=== PATIENT | female | born 1970 | race Caucasian/White ===

== ENCOUNTER 2023-06-07 09:28 | Outpatient (OUT) | payer MEDICAID, SELFPAY ==
--- NOTE | 2023-06-07 09:33 | CT_ITS ---
[address] [address] Patient Name: GIULIANO ALLEN MRN: [id number] date: 1970 Sex: F Assigned Patient Location: CT Current Patient Location: CT Accession/Order Number: [id number] Exam Date: 06/07/2023 09:40 Report Date: 06/07/2023 10:26 At the request of: ADRIANNE KELLOGG Procedure: CT lung screening low-dose EXAMINATION: CT lung screening low-dose HISTORY: Cigarette Smoker F17.210, Chronic Obstructive Pulmonary Dis COMPARISON: CTA chest 03/14/2018 TECHNIQUE: Axial, Coronal, and Sagittal images were created without the administration of IV contrast material. Dose reduction techniques were achieved by using automated exposure control and/or adjustment of mA and/or kV according to patient size and/or use of iterative reconstruction technique. FINDINGS: LUNGS: No visible pulmonary disease. PLEURA: No mass, effusion, or pneumothorax. VASCULATURE: No abnormality. EDDIE: No mass or pathologic adenopathy. MEDIASTINUM: No mass or pathologic adenopathy. CARDIAC: No enlargement, pericardial thickening, or pericardial effusion. AORTA: No aneurysm or dissection. CHEST WALL: No mass or axillary adenopathy BONES: No bone lesion or fracture. LIMITED ABDOMEN: Stable 2.2 cm right hepatic dome cyst versus hemangioma. Limited images of the upper abdomen. OTHER: Negative. CT/CT lung screening low-dose IMPRESSION: 1. Lung-RADS Category 1 Negative. No nodules and definitely benign nodules. Continue annual screening with LDCT in 12 months. Electronically authenticated by: MAHOGANY THURMAN Date: 06/07/2023 10:26
[2023-06-07 10:30] LABS: Basophils Absolute Auto 0.1 10^3/uL (0.0-0.1); Eosinophils Absolute Auto 0.3 10^3/uL (0.0-0.7); Eosinophils Percent Auto 3.4 % (0.9-7.0); Hematocrit 38.6 % (36.0-48.0); Hemoglobin 11.7 g/dL (12.0-16.0); Immature Granulocytes Abs Auto 0.03 10^3/uL (0.00-0.03); Immature Granulocytes Pct Auto 0.3 % (0.0-0.5); Lymphocytes Absolute Auto 2.1 10^3/uL (1.2-3.8); Lymphocytes Percent Auto 22.8 % (20.5-60.0); Mean Corpuscular HGB Conc 30.3 g/dL (29.9-35.2); Mean Corpuscular Hemoglobin 27.7 pg (26.7-34.0); Mean Corpuscular Volume 91.5 fL (81.0-99.0); Mean Platelet Volume 9.6 fL (9.5-13.5); Monocytes Absolute Auto 0.8 10^3/uL (0.3-0.8); Monocytes Percent Auto 9.2 % (1.7-12.0); Neutrophils Absolute Auto 5.7 10^3/uL (1.4-6.5); Neutrophils Percent Auto 63.3 % (43.0-75.0); Platelet Count 364 10^3/uL (150-450); Red Blood Count 4.22 10^6/uL (4.20-5.40); Red Cell Distribution Width 15.6 % (11.0-15.0)
[2023-06-07 11:55] LABS: Alanine Aminotransferase 30 U/L (14-59); Albumin Globulin Ratio 0.8; Alkaline Phosphatase 102 U/L (46-116); Anion Gap 12.9; Aspartate Amino Transferase 17 U/L (15-37); Bilirubin Total 0.2 mg/dL (0.2-1.0); Calcium 9.2 mg/dL (8.5-10.1); Carbon Dioxide 25.4 mmol/L (21.0-32.0); Chloride 107 mmol/L (98-107); Chol HDL Ratio 3.6; Cholesterol 156 mg/dL (<=200); Estimated GFR (African America >60 (>=60); Estimated GFR (Non-African Ame 53 (>=60); Glucose 119 mg/dL (74-106); HDL Cholesterol 43 mg/dL (40-60); Potassium 4.3 mmol/L (3.5-5.1); Sodium 141 mmol/L (136-145); TSH W/ REFLEX FT4 1.775 uIU/mL (0.358-3.740); Triglycerides 173 mg/dL (<=150); VLDL CHOLESTEROL 34.6 mg/dL
== END 2023-06-07 09:29 | disposition home or self-care (01) ==
LOC: CT 09:28
DX: R63.5 Abnormal weight gain (principal); F17.210 Nicotine dependence, cigarettes, uncomplicated; J44.9 Chronic obstructive pulmonary disease, unspecified; Z13.220 Encounter for screening for lipoid disorders; Z13.1 Encounter for screening for diabetes mellitus; G62.9 Polyneuropathy, unspecified; E55.9 Vitamin D deficiency, unspecified
CPT/HCPCS: 36415; 71271; 80053; 80061; 82306; 82607; 84443; 85025

== ENCOUNTER 2024-12-10 12:52 | Outpatient (OUT) | payer MEDICAID, SELFPAY ==
--- OUTSIDE RECORDS SUMMARY | 2024-12-10 13:04 | XMS_ITS | CCD ---
Author Organization [facility] Care Team Providers Care Buffing Line Set Up Worker Name Role Phone DO Heri Antonio Attending Provider Daniel, DANIEL William Primary Care Provider JOCELYNE, DR CROSS Primary Care Unavailable DANIEL, PAOLA Admitting Unavailable DANIEL, PAOLA Consulting Unavailable DANIEL, PAOLA Attending Unavailable NADEGE, DR LORNA Russell Attending Unavailable MISC, DR CROSS Primary Care Unavailable NADEGE, DR LORNA Russell Admitting Unavailable NADEGE, DR LORNA Russell Consulting Unavailable DANIEL, PAOLA Primary Care Unavailable SP, DR RULA Salazar Admitting Unavailable SP, DR RULA Salazar Consulting Unavailable SP, DR RULA Salazar Attending Unavailable WENDY ANTONIO Admitting Unavailable ZIEBPHILLY, DR MAHOGANY Russell Consulting Unavailable JOCELYNE, DR CROSS Primary Care Unavailable WENDY ANTONIO Attending Unavailable WENDY ANTONIO Consulting Unavailable WENDY ANTONIO Admitting Unavailable WENDY ANTONIO Consulting Unavailable WENDY ANTONIO Attending Unavailable JOCELYNE, DR CROSS Primary Care Unavailable Daniel, ARTIST COLOR SEPARATION Paola William Primary Care Provider MD Vlad Aguilar Attending Provider MD Prudencio Crain Attending Provider Prudencio Crain Attending Unavailab Prudencio Luther Admitting Unavailab le Daniel, Paola Stewart Primary Care Unavailable Daniel PRECISION INSTRUMENT AND TOOL MAKER-C, Paola A Attending Unavailable Daniel PRECISION INSTRUMENT AND TOOL MAKER-C, Paola A Primary Care Unavailable Daniel PRECISION INSTRUMENT AND TOOL MAKER-C, Paola A Attending Unavailable Daniel PRECISION INSTRUMENT AND TOOL MAKER-C, Paola A Primary Care Unavailable Daniel PRECISION INSTRUMENT AND TOOL MAKER-C, Paola A Primary Care Unavailable Daniel PRECISION INSTRUMENT AND TOOL MAKER-C, Paola A Attending Unavailable Daniel PRECISION INSTRUMENT AND TOOL MAKER-C, Paola A Primary Care Unavailable Daniel PRECISION INSTRUMENT AND TOOL MAKER-C, Paola A Attending Unavailable Daniel PRECISION INSTRUMENT AND TOOL MAKER-Paola Leo Primary Care Unavailable Daniel PRECISION INSTRUMENT AND TOOL MAKER-CPaola Attending Unavailable Allergies Allergy Classification Reported Allergen(s) Allergy Type Date of Onset Reaction(s) Facility (1 source) Amoxicillin Drug Allergy 6 [facility] Repository (2 sources) Penicillin; Translations: [penicillin] Drug Allergy 7 [facility] Repository (2 sources) Penicillins; Translations: [Penicillins] Allergy to substance 4 [facility] (1 source) Grass; Translations: [Grass] Propensity to adverse reactions to drug (disorder) [facility] Repository Medications Current Medications Medication Drug Class(es) Dates Sig (Normalized) Sig (Original) [id number] actuat albuterol 0.09 mg/actuat metered dose inhaler (1 source) beta2-Adrenergic Agonist Start: 09-04-2023 Albuterol Sulfate Active 1 - 2 INH INHALATION EVERY 4-6 HOURS September 04, 2023 12:00am ALPRAZolam 1 mg oral tablet (1 source) Benzodiazepine Start: 09-04-2023 take 1 mg by mouth twice daily Alprazolam Active 1 MG PO Twice daily September 04, 2023 12:00am busPIRone hydrochloride 15 mg oral tablet (1 source) Start: 09-04-2023 take 15 mg by mouth once daily at bedtime Buspirone Active 15 MG PO Daily at bedtime September 04, 2023 12:00am cholecalciferol 0.025 mg oral capsule (1 source) Vitamin D Start: 09-04-2023 take 25 ug by mouth once daily at bedtime Cholecalciferol (Vitamin D3) Active 25 MCG PO Daily at bedtime September 04, 2023 12:00am melatonin 3 mg oral tablet (1 source) Start: 09-04-2023 take 3-6 mg by mouth once daily at bedtime Melatonin Active 3 - 6 MG PO Daily at bedtime September 04, 2023 12:00am Mometasone-Formotero l (Dulera) 200-5 mcg/actuation HFA aerosol inhaler (1 source) Start: 09-04-2023 Mometasone-Formoter ol (Dulera) 200-5 mcg/actuation HFA aerosol inhaler Active 2 INH INHALATION Twice daily September 04, 2023 12:00am Tiotropium Parachute (Spiriva With Handihaler) 18 mcg capsule, w/inhalation device (1 source) Start: 09-04-2023 take 1 capsule by inhalation once daily at bedtime Tiotropium Parachute (Spiriva With Handihaler) 18 mcg capsule, w/inhalation device Active 1 CAP INHALATION Daily at bedtime September 04, 2023 12:00am vitamin b12 0.1 mg oral tablet (1 source) Vitamin B12 Start: 09-04-2023 take 100 ug by mouth once daily at bedtime Cyanocobalamin (Vitamin B-12) Active 100 MCG PO Daily at bedtime September 04, 2023 12:00am Problems Active Problems Problem Classification Problem Date Documented Date Episodic/Chronic Asthma (4 sources) Unspecified asthma, uncomplicated; Translations: [UNSPECIFIED ASTHMA UNCOMPLICATED] Onset: 03-30-2021 Chronic Chronic obstructive pulmonary disease and bronchiectasis (1 source) Chronic obstructive pulmonary disease, unspecified; Translations: [COPD UNSPECIFIED] Onset: 06-05-2021 Chronic Nutritional deficiencies (1 source) Vitamin D deficiency, unspecified; Translations: [VITAMIN D DEFICIENCY UNSPECIFIED] Onset: 04-06-2021 Chronic Other connective tissue disease (4 sources) Other symptoms and signs involving the musculoskeletal system; Translations: [OTH SX AND SYMP INVOLV MUSCULOSKELTAL] Onset: 01-09-2022 Episodic Other nervous system disorders (1 source) Polyneuropathy, unspecified; Translations: [POLYNEUROPATHY UNSPECIFIED] Onset: 04-06-2021 Chronic Spondylosis; intervertebral disc disorders; other back problems (1 source) Other intervertebral disc degeneration, lumbosacral region; Translations: [OTH IV DISC DEGEN LUMBOSACRAL RGN] Onset: 01-11-2022 Chronic Spondylosis; intervertebral disc disorders; other back problems (2 sources) Intervertebral disc disorders with radiculopathy, lumbar region; Translations: [Spinal stenosis, lumbar region without neurogenic claudication] Onset: 02-18-2022 Episodic Unclassified (3 sources) LOW BACK PAIN, UNSPECIFIED; Translations: [LOW BACK PAIN, UNSPECIFIED] Onset: 02-18-2022 Past or Other Problems Problem Classification Problem Date Documented Da te Episodic/Chronic Other aftercare (1 source) Other manager style (current) drug therapy; Translations: [OTH [facility] CURRENT DRUG THERAPY] Onset: 06-05-2021 Episodic Other screening for suspected conditions (not mental disorders or infectious disease) (2 sources) Encounter for screening for diabetes mellitus; Translations: [Encounter for screening for lipoid disorders] Onset: 04-06-2021 Episodic Other skin disorders (4 sources) Rash and other nonspecific skin eruption; Translations: [RASH OTH NONSPECIFIC SKIN ERUPTION] Onset: 06-03-2021 Episodic Skin and subcutaneous tissue infections (1 source) Local infection of the skin and subcutaneous tissue, unspecified; Translations: [LOCAL INFECT SKIN SUBQ TISSUE UNS] Onset: 06-05-2021 Episodic Unclassified (1 source) LOW BACK PAIN, UNSPECIFIED; Translations: [LOW BACK PAIN, UNSPECIFIED] Onset: 02-13-2022 Results Test Name Value Interpretation Reference Range Facil ity Patient Letteron 06-02-2024 Patient Letter [id number] [facility] Outside Recordson 06-01-2024 Outside Records Pt was a no show for her appointment and has not rescheduled [Electronically Signed on: 06/02/2024 08:19 EST] Carey De La Rosa [Verified on: 06/02/2024 08:19 EST] Carey De La Rosa [facility] HCG ( test) IA.rapi d Ql (U)Ordered By: Kashif Perez on 10-03-2023 HCG ( test) Ql (U) Negative [facility] HCG ( test) IA.rapi d Ql (U)Ordered By: Pelon Stalh on 09-05-2023 HCG ( test) Ql (U) Negative [facility] MRI LSPINE WO CONon 01-10-20 MRI LSPINE WO CON EXAMINATION: MRI LSPINE WO CON HISTORY: Musculoskeletal symptom ; bilateral leg weakness, chronic lumbar pain COMPARISON: No relevant comparison available. TECHNIQUE: A variety of imaging planes and parameters were utilized for visualization of suspected pathology. FINDINGS: For the purposes of numbering, sagittal T2 image # 8 extends from the T11 vertebral body superiorly to the S2-S3 level inferiorly. PARASPINAL AREA: Normal with no visible mass. BONES: No fracture, pars defect, or osseous lesion. CORD/CAUDA EQUINA: Normal caliber, contour, and signal intensity. DISC LEVELS: 12-L1: No significant disc/facet abnormality, spinal stenosis, or foraminal stenosis. L1-L2: No significant disc/facet abnormality, spinal stenosis, or foraminal stenosis. L2-L3: No significant disc/facet abnormality, spinal stenosis, or foraminal stenosis. L3-L4: Early degenerative disc disease is present without focal protrusion or neural impingement. L4-L5: Mild degenerative facet arthropathy bilaterally. No significant disc abnormality, spinal stenosis, or foraminal stenosis. L5-S1: Mild-moderate left, mild right foramen narrowing. No significant central canal narrowing. Mild diffuse disc bulging with small, broad-based left paracentral disc protrusion. Moderate disc height reduction. IMPRESSION: 1. No specific findings to account for patient's symptoms. 2. L5-S1 mild-moderate left and mild right foramen narrowing secondary to moderate degenerative disc disease. Electronically authenticated by: MAHOGANY THURMAN Date: 2022-01-09 17:20 Normal [facility] CBC AUTO DIFFon 03-31-2021 BASO # 0.1 103/ul Normal 0.0-0.1 [facility] Comment on above: Performed By: #### C BC #### [facility] [address] [address] [address] Kacy Mane Basophils/100 WBC (Bld) 0.6 % Normal 0.2-2.0 [facility] Comment on above: Performed By: #### C BC #### [facility] [address] [address] [address] Kacy Mane EO # 0.3 103/ul Normal 0.0-0.7 [facility] Comment on above: Performed By: #### C BC #### [facility] [address] [place] [address] Dr. Kacy Mane Eosinophils/100 WBC (Bld) 3.4 % Normal 0.9-7.0 [facility] Comment on above: Performed By: #### C BC #### [facility] [address] [place] [address] Dr. Kacy Mane Erythrocyte distribution width (RBC) [Ratio] 14.1 % Normal 11.0-15.0 [facility] Comment on above: Performed By: #### C BC #### [facility] [address] [place] [address] Dr. Kacy Mane Hematocrit (Bld) [Volume fraction] 39.1 % Normal 36.0-48.0 [facility] Comment on above: Performed By: #### C BC #### [facility] [address] [place] [address] Dr. Kacy Mane Hemoglobin (Bld) [Mass/Vol] 12.7 g/dL Normal 12.0-16.0 [facility] Comment on above: Performed By: #### C BC #### [facility] [address] [place] [address] Dr. Kacy Mane IG # 0.03 10e3/ul Normal 0.00-0.03 [facility] Comment on above: Performed By: #### C BC #### [facility] [address] [place] [address] Dr. Kacy Mane IG % 0.4 % Normal 0.0-0.5 [facility] Comment on above: Performed By: #### C BC #### [facility] [address] [place] [address] Dr. Kacy Mane LYMPH # 2.3 103/ul Normal 1.2-3.8 [facility] Comment on above: Performed By: #### C BC #### [facility] [address] [place] [address] Dr. Kacy Mane Lymphocytes/100 WBC (Bld) 27.3 % Normal 20.5-60.0 [facility] Comment on above: Performed By: #### C BC #### [facility] [address] [place] [address] Dr. Kacy Mane MANUAL DIFF REQ NO Normal [facility] Comment on above: Performed By: #### C BC #### [facility] [address] [place] [address] Dr. Kacy Mane MCH (RBC) [Entitic mass] 32.1 pg Normal 26.7-34.0 [facility] Comment on above: Performed By: #### C BC #### [facility] [address] [place] [address] Dr. Kacy Mane MCHC (RBC) [Mass/Vol] 32.5 g/dL Normal 29.9-35.2 [facility] Comment on above: Performed By: #### C BC #### [facility] [address] [place] [address] Dr. Kacy Mane MCV (RBC) [Entitic vol] 98.7 fL Normal 81.0-99.0 [facility] Comment on above: Performed By: #### C BC #### [facility] [address] [place] [address] Dr. Kacy Mane MONO # 0.7 103/ul Normal 0.3-0.8 [facility] Comment on above: Performed By: #### C BC #### [facility] [address] [place] [address] Dr. Kacy Mane Monocytes/100 WBC (Bld) 8.1 % Normal 1.7-12.0 [facility] Comment on above: Performed By: #### C BC #### [facility] [address] [place] [address] Dr. Kacy Mane NEUT # 5.0 103/ul Normal 1.4-6.5 [facility] Comment on above: Performed By: #### C BC #### [facility] [address] [place] [address] Dr. Kacy Mane Neutrophils/100 WBC (Bld) 60.2 % Normal 43.0-75.0 [facility] Comment on above: Performed By: #### C BC #### [facility] [address] [place] [address] Dr. Kacy Mane Platelet mean volume (Bld) [Entitic vol] 9.2 fL Critically low 9.5-13.5 [facility] Comment on above: Performed By: #### C BC #### [facility] [address] [address] [address] Kacy Mane PLT 276 103/ul Normal 150-450 [facility] Comment on above: Performed By: #### C BC #### [facility] [address] [address] [address] Kacy Mane RBC 3.96 106/ul Critically low 4.20-5.40 [facility] Comment on above: Performed By: #### C BC #### [facility] [address] [place] [address] Dr. Kacy Mane WBC 8.3 103/ul Normal 4.0-11.0 [facility] Comment on above: Performed By: #### C BC #### [facility] [address] [place] [address] Dr. Kacy Mane LIPID PROFILEon 03-30-2021 CHOL-HDL RATIO NORM SEE BELOW Normal [facility] Comment on above: Result Comment: 3.3 - 4.4 LOW RISK 4.4 - 7.1 AVERAGE RISK 7.1 - 11.0 MODERATE RISK >11.0 HIGH RISK Performed By: #### L IPID, TSH, CMP #### [facility] [address] [place] [address] Dr. Kacy Mane Cholesterol [Mass/Vol] 153 mg/dL Normal <=200 [facility] Comment on above: Performed By: #### L IPID, TSH, CMP #### [facility] [address] [place] [address] Dr. Kacy Mane Cholesterol in HDL [Mass/Vol] 41 mg/dL Normal [facility] Comment on above: Performed By: #### L IPID, TSH, CMP #### [facility] [address] [place] [address] Dr. Kacy Mane Cholesterol in LDL [Mass/Vol] 98.4 mg/dL Normal [facility] Comment on above: Performed By: #### L IPID, TSH, CMP #### [facility] [address] [address] [address] Kacy Mane Cholesterol.total/ Cholesterol in HDL [Mass ratio] 3.7 {ratio} Normal [facility] Comment on above: Performed By: #### L IPID, TSH, CMP #### [facility] [address] [address] [address] Kacy Mane HDL NORMAL > or = 60 mg/dl - LO W CARDIOVASCULAR RISK <40 mg/dl - HIGH CARDIOVASCULAR RISK Normal [facility] Comment on above: Performed By: #### L IPID, TSH, CMP #### [facility] [address] [address] [address] Kacy Mane LDL CALC NORMAL SEE BELOW Normal [facility] Comment on above: Result Comment: <100 mg/dl OPTIMAL 100 - 129 mg/dl NEAR OR ABOVE OPTIMAL 130 - 159 mg/dl BORDERLINE HIGH 160 - 189 mg/dl HIGH >190 mg/dl VERY HIGH Performed By: #### L IPID, TSH, CMP #### [facility] [address] [address] [address] Kacy Mane Triglyceride [Mass/Vol] 68 mg/dL Normal <=150 [facility] Comment on above: Performed By: #### L IPID, TSH, CMP #### [facility] [address] [address] [address] Kacy Mane VLDL CALC 13.6 mg/dL Normal [facility] Comment on above: Performed By: #### L IPID, TSH, CMP #### [facility] [address] [address] [address] Kacy Mane PROF 14(COMP METB)on 021 Albumin [Mass/Vol] 3.1 g/dL Critically low 3.5-5.0 [facility] Comment on above: Performed By: #### L IPID, TSH, CMP #### [facility] [address] [place] [address] Dr. Kacy Mane Albumin/Globulin [Mass ratio] 0.8 {ratio} Normal [facility] Comment on above: Performed By: #### L IPID, TSH, CMP #### [facility] [address] [address] [address] Kacy Mane ALP [Catalytic activity/Vol] 89 U/L Normal 38-126 [facility] Comment on above: Performed By: #### L IPID, TSH, CMP #### [facility] [address] [address] [address] Kacy Mane ALT [Catalytic activity/Vol] 26 U/L Normal 9-52 [facility] Comment on above: Performed By: #### L IPID, TSH, CMP #### [facility] [address] [place] [address] Dr. Kacy Mane Anion gap [Moles/Vol] 11.3 mmol/L Normal [facility] Comment on above: Performed By: #### L IPID, TSH, CMP #### [facility] [address] [place] [address] Dr. Kacy Mane AST [Catalytic activity/Vol] 16 U/L Normal 14-36 [facility] Comment on above: Performed By: #### L IPID, TSH, CMP #### [facility] [address] [place] [address] Dr. Kacy Mane Bilirubin [Mass/Vol] 0.3 mg/dL Normal 0.2-1.3 [facility] Comment on above: Performed By: #### L IPID, TSH, CMP #### [facility] [address] [place] [address] Dr. Kacy Mane Calcium [Mass/Vol] 8.7 mg/dL Normal 8.4-10.2 [facility] Comment on above: Performed By: #### L IPID, TSH, CMP #### [facility] [address] [place] [address] Dr. Kacy Mane Chloride [Moles/Vol] 103 mmol/L Normal 98-107 [facility] Comment on above: Performed By: #### L IPID, TSH, CMP #### [facility] [address] [place] [address] Dr. Kacy Mane CO2 [Moles/Vol] 27.0 mmol/L Normal 22.0-30.0 [facility] Comment on above: Performed By: #### L IPID, TSH, CMP #### [facility] [address] [address] [address] Kacy Mane Creatinine [Mass/Vol] 1.23 mg/dL Critically high 0.52-1.04 [facility] Comment on above: Performed By: #### L IPID, TSH, CMP #### [facility] [address] [address] [address] Kacy Mane EGFR-AF TURKS AND CAICOS ISLANDER 55 mL/min/1.73m2 Critically low >=60 [facility] Comment on above: Performed By: #### L IPID, TSH, CMP #### [facility] [address] [place] [address] Dr. Kacy Mane EGFR-NON AF TURKS AND CAICOS ISLANDER 46 mL/min/1.73m2 Critically low >=60 [facility] Comment on above: Performed By: #### L IPID, TSH, CMP #### [facility] [address] [place] [address] Dr. Kacy Mane Globulin (S) [Mass/Vol] 3.8 g/dL Normal [facility] Comment on above: Performed By: #### L IPID, TSH, CMP #### [facility] [address] [place] [address] Dr. Kacy Mane Glucose [Mass/Vol] 98 mg/dL Normal 74-106 [facility] Comment on above: Performed By: #### L IPID, TSH, CMP #### [facility] [address] [place] [address] Dr. Kacy Mane Potassium [Moles/Vol] 4.3 mmol/L Normal 3.4-5.0 [facility] Comment on above: Performed By: #### L IPID, TSH, CMP #### [facility] [address] [place] [address] Dr. Kacy Mane Protein [Mass/Vol] 6.9 g/dL Normal 6.1-8.2 [facility] Comment on above: Performed By: #### L IPID, TSH, CMP #### [facility] [address] [place] [address] Dr. Kacy Mane Sodium [Moles/Vol] 137 mmol/L Normal 137-145 [facility] Comment on above: Performed By: #### L IPID, TSH, CMP #### [facility] [address] [place] [address] Dr. Kacy Mane Urea nitrogen [Mass/Vol] 19.0 mg/dL Critically high 7.0-17.0 [facility] Comment on above: Performed By: #### L IPID, TSH, CMP #### [facility] [address] [place] [address] Dr. Kacy Mane Urea nitrogen/Creatinin e [Mass ratio] 15.4 mg/mg Normal [facility] Comment on above: Performed By: #### L IPID, TSH, CMP #### [facility] [address] [place] [address] Dr. Kacy Mane TSHon 03-30-2021 TSH 1.221 uIU/mL Normal 0.470-4.680 [facility] Comment on above: Performed By: #### L IPID, TSH, CMP #### [facility] [address] [place] [address] Dr. Kacy Mane TSH RANGE SEE BELOW Normal [facility] Comment on above: Result Comment: <0.3 4 UIU/ml HYPERTHYROID 0.34-5.60 UIU/ml EUTHYROID >5.60 UIU/ml HYPOTHYROID Performed By: #### L IPID, TSH, CMP #### [facility] [address] [place] [address] Dr. Kacy Mane VITAMIN B12on 03-30-2021 Cobalamin (Vitamin B12) [Mass/Vol] 715.0 pg/mL Normal 239.0-931.0 [facility] Comment on above: Performed By: #### V ITB12, VITAD #### [facility] [address] [place] [address] Dr. Kacy Mane VITAMIN D 25 OHon 03-30-2021 VIT D 25-OH 57.1 ng/mL Normal [facility] Comment on above: Performed By: #### V ITB12, VITAD #### [facility] [address] [place], [place] [address] Dr. Kacy Mane VIT D RANGES SEE BELOW Normal [facility] Comment on above: Result Comment: <20 ng/mL Vit D deficient 20 - <30 ng/mL Vit D insufficient 30 - 100 ng/mL Vit D sufficient >100 ng/mL Potential Toxicity Performed By: #### V ITB12, VITAD #### [facility] [address] [address] [address] Kacy Mane Vital Signs Date Time Vital Sign Value Performing Clinician Faci lity 10-03-2023 10:55-0400 Diastolic blood pressure 69 mm[Hg] ARTIST [employer] SEPARATION Paola Daniel Work Phone: [facility] 10-03-2023 10:55-0400 Heart rate 72 /min [employer]PAR[employer] Paola Daniel Work Phone: [facility] 10-03-2023 10:55-0400 Respiratory rate 16 /min [employer]PAR[employer] Paola Daniel Work Phone: [facility] 10-03-2023 10:55-0400 SaO2% (BldA) [Mass fraction] 93 % [employer]PARATION Paola Daniel Work Phone: [facility] 10-03-2023 10:55-0400 Systolic blood pressure 109 mm[Hg] [employer] SEPARATION Paola Daniel Work Phone: [facility] 10-03-2023 09:17-0400 Body height 162.56 cm [employer]PARATION Paola Daniel Work Phone: [facility] 10-03-2023 09:17-0400 Body temperature 98 [degF] [employer] SEPARATION Paola Daniel Work Phone: [facility] 10-03-2023 09:17-0400 Body weight 100.69 kg [employer]PAR[employer] Paola Daniel Work Phone: [facility] 09-05-2023 11:08-0400 Diastolic blood pressure 80 mm[Hg] [employer] SEPARATION Paola Daniel Work Phone: [facility] 09-05-2023 11:08-0400 Heart rate 79 /min [employer]PAR[employer] Paola Daniel Work Phone: [facility] 09-05-2023 11:08-0400 Respiratory rate 16 /min [employer]PAR[employer] Paola Daniel Work Phone: [facility] [facility] 09-05-2023 11:08-0400 SaO2% (BldA) [Mass fraction] 97 % [employer]PAR[employer] Paola Daniel Work Phone: [facility] 09-05-2023 11:08-0400 Systolic blood pressure 121 mm[Hg] [employer]PAR[employer] Paola Daniel Work Phone: [facility] 09-05-2023 09:23-0400 Body height 162.56 cm [employer] SEPAR[employer] Paola Daniel Work Phone: [facility] 09-05-2023 09:23-0400 Body temperature 98.1 [degF] [employer]PAR[employer] Paola Daniel Work Phone: [facility] 09-05-2023 09:23-0400 Body weight 90.71 kg [employer]IST [employer] SEPARATION Paola Daniel Work Phone: [facility] Encounters Encounter Date Encounter Type Care Provider Facility Start: 12-08-2024 ambulatory Paola A Daniel [employer]-C Facil ity:[facility] Start: 11-16-2024 ambulatory Prudencio Montero acility:[facility] Start: 06-10-2024 ambulatory Paola A Daniel [employer]-C Facil ity:[facility] Start: 06-01-2024 ambulatory Paola A Daniel [employer]C Facil ity:[facility] Start: 05-28-2024 ambulatory Paola A Daniel [employer]-C Facil ity:[facility] Start: 05-21-2024 ambulatory Paola A Daniel [employer]-C Facil ity:[facility] Start: 10-03-2023 End: 10-03-2023 Admission to same day surgery center [employer] SEPARATION Paola Daniel Work Phone: [facility] [address] Start: 10-03-2023 End: 10-03-2023 ambulatory DANIEL Paola William Daniel Work Phone: [facility] Work Phone: Start: 09-11-2023 Registered Recurring DANIEL Posadaert Work Phone: [facility] Start: 09-05-2023 End: 09-05-2023 Admission to same day surgery center DANIEL Guevara Daniel Work Phone: [facility] [address] Start: 09-04-2023 End: 09-04-2023 Departed Referred DANIEL Posadaert Work Phone: [facility] Work Phone: Start: 02-13-2022 End: 02-14-2022 ambulatory PAOLA SANCHEZ Facility:[facility] Start: 01-09-2022 End: 01-10-2022 ambulatory WENDY ANTONIO Facility:[facility] Start: 07-25-2021 End: 07-25-2021 Patient encounter procedure DO Heri Antonio Work Phone: [facility] [address] Start: 07-03-2021 End: 07-04-2021 ambulatory WENDY ANTONIO Facility:[facility] Start: 06-03-2021 End: 06-03-[address] LORNA LIGHT Facility:[facility] Start: 03-30-2021 End: 03-31-[address] DOCTOR CASANOVA Facility:[facility] Procedures Date Procedure Procedure Detail Performing Clinician Start: 10-03-2023 Phacoemulsification of cataract with intraocular lens implantation DANIEL Guevara Daniel Work Phone: Start: 09-05-2023 Phacoemulsification of cataract with intraocular lens implantation [employer] Paola Daniel Work Phone: Plan of Treatment Date Care Activity Detail Author Start: 10-03-2023 [facility] Start: 09-05-2023 [facility] Start: 09-05-2023 [facility] Patient Education Know your Meds [facility] Work Phone: Patient referral [facility] Work Phone: Payers Date Payer Category Payer Self-pay [id number] 2022 Medicaid [id number] 1970 Unknown [id number] 2.16.84 [id number] 1968 Unknown [id number] 2.16.84 [id number] 1968 Unknown [id number] 2.16.84 [id number] 1968 Unknown [id number] 2.16.84 [id number] 1968 Unknown [id number] 2.16.84 [id number] 1968 Unknown [id number] 2.16.8 [id number] 1968 Unknown [id number] 2.16.8 [id number] 1968 Unknown [id number] 2.16.8 [id number] 1968 Unknown [id number] 2.16.8 [id number] 1968 Unknown [id number] 2.16.8 [id number] 1959 Unknown [id number] 1959 Unknown [id number] Unknown [id number] Unknown [id number] 2.16.8 [id number] Social History Date Type Detail Facility Tobacco smoking stat [facility] Unknown if ever smoked [facility] Work Phone: Start: 1970 Sex Assigned At Female F [facility] Start: 10-03-2023 Tobacco smoking stat [facility] Smoker (finding) [facility] Medical Equipment Procedure Code Equipment Code Equipment Origin al Text Equipment Identifier Dates Phacoemulsification of cataract with intraocular lens implantation Posterior-chamber intraocular lens, pseudophakic ()[id number] FDA Start: 09-05-2023 Goals Date Patient Goal Desired Activity /State Consultation note 02-13-2022 Note Date & Type Note Facility 02-13-2022 Note CONSULTATION CONSULTATION DATE: 02/13/2022 CHIEF COMPLAINT: Low back pain 15+ years. HISTORY OF PRESENT ILLNESS: This is a very pleasant, 52-year-old female who was referred to us by Dr. Antonio. The patient's family physician is Paola Sanchez CNP. The patient has chronic low back pain. The patient works at [employer]. The patient rates the pain as a 5/10, a throbbing sensation. Twisting, walking, housework, lifting, bending, climbing stairs, activities aggravate the pain as does cold weather. Sitting down, laying down mitigates the patient's pain symptomatology as does heat. The patient takes Advil three tablets on a p.r.n. basis, Alprazolam 1 mg b.i.d., wellbutrin 150 mg q.a.m. and 300 mg q.p.m., BuSpar 150 mg b.i.d. along with Vitamin D and melatonin. The patient is under the care of Paola Sanchez CNP. The patient's PAST MEDICAL HISTORY / SURGICAL HISTORY / REVIEW OF SYSTEMS are noted on the chart along with the MEDICATION LIST / ALLERGIES and MRI of the lumbar spine which was reviewed with the patient, which shows a herniated disc at the level of L5-S1 with encroachment along the S1 nerve root. PHYSICAL EXAMINATION: Upon physical examination, this is a pleasant, slightly disheveled, 52-year-old female, who ambulates with a walker. VITAL SIGNS: 111/77 with a heart rate of 78. At a height of 5'4 , the patient weighs 105 kg with a 96% saturation. HEAD: Atraumatic. The patient is edentulous. NECK: No guarding is noted. HEART: No orthopnea. Coloration is appropriate. LUNGS: Non-labored breathing. ABDOMEN: Protuberant, non-distended. BACK: With regards to the back, paravertebral spasming is noted. Extension, compression, direct palpation along the posterior elements aggravate the patient's pain concordant with facet arthropathy, lumbar spondylosis. EXTREMITIES: No pedal edema. NEUROLOGICALLY: Patellar reflexes are blunted; however, present. Achilles reflexes are absent bilaterally. Hypoesthesia is present along the L5-S1 distribution on the left hand side greater than right hand side. PSYCHIATRICALLY: Affect is appropriate. IMPRESSION: Current working diagnosis on the patient is low back pain, lumbar degenerative disc with bulging disc with spinal canal stenosis, L5-S1 radiculitis, lumbar spasm, lumbar spondylosis. PLAN: The patient is on a relatively high dose of benzodiazepines and, as such, feel uncomfortable prescribing any medications for her at this time. We have strongly suggested to the patient for her to decrease the Alprazolam to 0.5 mg initially on a b.i.d. basis, with the goal to be able to reduce this further. I believe that the patient is a good candidate for our conservative approach to improve her quality of life. I believe once we have attended to the radicular pain, we will work with the posterior element pain and then have the patient join an aquatic program. CC: Hugo Wylie, SHANTA [facility] Evaluation note Note Date & Type Note Facility Evaluation note [facility]: Hospital Discharge instructions Note Date & Type Note Facility Hospital Discharge instructions Additional Instructions POST CATARACT SURGERY INSTRUCTIONS EYEDROPS First day (24 hours) Ocuflox or Vigamox and Pred Forte-use 1 drop to operative eye every hour while awake. Artificial tears- May use 1 drop 4 times a day as needed in the surgical eye. Next day Ocuflox or Vigamox-continue to use the drop in the surgery eye 4 times per day for 1 week. Pred Forte-start using the drop in the surgery eye 4 times per day for 1 week, then taper to 3 times per day for 1 week, 2 times a day for 1 week, then once a day for 1 week. Artificial tears- May use 1 drop 4 times a day as needed in the surgical eye. -Wait 5 minutes or more between using the different medications. -Please bring all your eyedrops to every follow-up visit. BATHING: You may shower, bathe, or wash her hair normally after the surgery. SUNGLASSES: Please bring sunglasses for your ride home. Some people are light-sensitive for a few weeks following surgery. Wear sunglasses for comfort. Sunglasses are not required. DUE TO ANESTHESIA: DO NOT make complex decision/sign legal documents for 24 hours after your procedure. No smoking or drinking alcohol for 24 hours. EYE RUBBING: DO NOT RUB YOUR EYE for at least 4 weeks. BLUR: Blurriness is common for several days to weeks. IRRITATION: Mild irritation or watering eye is common. MEDICATION: Continue/resume normal medications, including eye drops. Patient educated on importance of managing medication information: -Give list of medications to primary care physician. -Update information when medications are discontinued, doses are changed or new medications added. -Carry medication list with you at all times in case of emergency. Call if questions/problems occur: If you experience 1. Persistent pain/vomiting 2. Sudden worsening of your eyesight. Please call your purchasing department clerk during normal business hours. If after business hours call Dr. Vlad Aguilar at his cell [phone] or his office [phone]. [facility] Work Phone: Chief Complaint and Reason for Visit Chief Complaint r29.257 Chief Complaint Right Eye Cataract Right Eye Cataract BH Left Eye Cataract Advance Directives No Advanced Directives Records Found Advance Directive Response Recorded Date/ Time Advance Directives No July 13, 2 022 4:21pm Summary Purpose Family History No Family History Records Found Relationship Condition Age at Onset Recorded Date/T anu Not Specified Multiple myeloma Unknown Malignant neoplasm of breast Unknown Depression Unknown Anxiety Unknown sister Malignant neoplasm of uterus Unknown Additional Source Comments Care Teams (unrecognized sec tion and content) Team Status: Inactive Member Role Status Dates Heri Antonio DO Attending Provider Active Paola Sanchez , ARTIST [employer]OR SEPARATION [employer]ER-C Primary Care Provider Active Team Status: Active Member Role Status Dates Paola Sanchez [employer] SEPARATION [employer]ER-C Primary Care Provider Active Team Status: Inactive Member Role Status Dates Paola Sanchez [employer] SEPARATION [employer]ER-C Primary Care Provider Active Start: September 04, 2023 End: September 04, 2023 Vlad Aguilar MD Attending Provider Active Start: September 04, 2023 End: September 04, 2023 Team Status: Inactive Member Role Status Dates Paola Sanchez [employer]IST [employer] SEPARATION [employer]OL [employer]KER-C Primary Care Provider Active Start: September 05, 2023 End: September 05, 2023 Vlad Aguilar MD Attending Provider Active Start: September 05, 2023 End: September 05, 2023 Team Status: Active Member Role Status Dates Paola Sanchez ARTIST [employer]OR SEPARATION [employer]OL [employer]KER-C Primary Care Provider Active Start: September 11, 2023 Prudencio Crain MD Attending Provider Active Start: September 11, 2023 Team Status: Inactive Member Role Status Dates Paola Sanchez , ARTIST COLOR SEPARATION [employer]UMENT [employer]OL MAKER-C Primary Care Provider Active Start: October 03, 2023 End: October 03, 2023 Vlad Aguilar MD Attending Provider Active Start: October 03, 2023 End: October 03, 2023 Goals (unrecognized section and content) Goals may be documented in a n alternate section INFORMATION SOURCE (unrecogn ized section and content) DATE CREATED AUTHOR 02/18/2022 [facility] DATE CREATED AUTHOR AUTHOR'S ORGANIZ ATION 12/05/2024 [facility] DATE CREATED AUTHOR AUTHOR'S ORGANIZ ATION 12/06/2024 [facility] FOR RECORDS PERTAINING TO PATIENTS WHO ARE OR HAVE BEEN ENROLLED IN A CHEMICAL DEPENDENCY/SUBSTANCEABUSE PROGRAM, SOME INFORMATION MAY BE OMITTED. This clinical summary was aggregated from multiple sources. Caution should be exercised in using it in the provision of clinical care. This summary normalizes information from multiple sources, and as a consequence, information in this document may materially change the coding, format and clinical context of patient data. In addition, data may be omitted in some cases. CLINICAL DECISIONS SHOULD BE BASED ON THE PRIMARY CLINICAL RECORDS. [facility]. provides no warranty or guarantee of the accuracy or completeness of information in this document.
[2024-12-10 13:40] LABS: Hematocrit 31.3 % (36.0-48.0); Hemoglobin 9.9 g/dL (12.0-16.0); Immature Granulocytes Abs Auto 0.03 10^3/uL (0.00-0.03); Immature Granulocytes Pct Auto 0.4 % (0.0-0.5); Lymphocytes Absolute Auto 2.0 10^3/uL (1.2-3.8); Mean Corpuscular HGB Conc 31.6 g/dL (29.9-35.2); Mean Corpuscular Hemoglobin 29.0 pg (26.7-34.0); Mean Corpuscular Volume 91.8 fL (81.0-99.0); Platelet Count 324 10^3/uL (150-450); Red Blood Count 3.41 10^6/uL (4.20-5.40); White Blood Count 8.4 10^3/uL (4.0-11.0)
[2024-12-10 14:34] LABS: Alanine Aminotransferase 28 U/L (14-59); Albumin Globulin Ratio 0.8; Albumin Level 3.2 g/dL (3.4-5.0); Alkaline Phosphatase 118 U/L (46-116); Anion Gap 11.5; Aspartate Amino Transferase 16 U/L (15-37); Blood Urea Nitrogen 14.0 mg/dL (7.0-18.0); Calcium 8.4 mg/dL (8.5-10.1); Carbon Dioxide 25.8 mmol/L (21.0-32.0); Chloride 103 mmol/L (98-107); Cholesterol 173 mg/dL (<=200); Estimated GFR (African America 56 (>=60 mL/min/1.73m^2); Estimated GFR (Non-African Ame 46 (>=60 mL/min/1.73m^2); Globulin 3.8 g/dL; Glucose 96 mg/dL (74-106); HDL Cholesterol 57 mg/dL (40-60); Potassium 4.3 mmol/L (3.5-5.1); Sodium 136 mmol/L (136-145); Total Protein 7.0 g/dL (6.4-8.2); Triglycerides 84 mg/dL (<=150); VLDL CHOLESTEROL 16.8 mg/dL
== END 2024-12-10 12:53 | disposition home or self-care (01) ==
DX: E74.39 Other disorders of intestinal carbohydrate absorption (principal); Z13.220 Encounter for screening for lipoid disorders; D64.9 Anemia, unspecified
CPT/HCPCS: 36415; 80053; 80061; 83036; 85025

== ENCOUNTER 2024-12-15 13:44 | Outpatient (OUT) | payer MEDICAID, SELFPAY ==
--- NOTE | 2024-12-15 13:57 | US_ITS ---
The [address] [address] Patient Name: GIULIANO ALLEN MRN: [id number] date: 1970 Sex: F Assigned Patient Location: [place] Current Patient Location: Accession/Order Number: [id number] Exam Date: 12/15/2024 14:00 Report Date: 12/15/2024 14:55 At the request of: ADRIANNE KELLOGG Procedure: US pelvis w/ transvaginal Pelvic ultrasound. Reason for exam: Dysmenorrhea Comparison: none Technique: Transvaginal and transabdominal imaging of the uterus and ovaries was also obtained. Additional spectral Doppler analysis of the ovaries was also obtained. Findings: Uterus measures 10.9 x 6.1 x 6.7 cm. Abnormal thickening involving the endometrium measuring 22 mm. No measurable fibroid. Right ovary measures 3.9 x 3.4 x 2.8 cm. 2.9 cm right ovarian cyst. Left ovary is not visualized. US/US pelvis w/ transvaginal Impression: Abnormal thickening involving the endometrium measuring 22 mm. Endometrial sampling should be considered. Impression dictated by: Lloyd Flores Jr., D.O. 12/15/2024 2:55 PM Dictation Location: [place] [address] Electronically authenticated by: [id number] Y Date: 12/15/2024 14:55
--- NOTE | 2024-12-15 13:58 | CT_ITS ---
The [address] [address] Patient Name: GIULIANO ALLEN MRN: [id number] date: 1970 Sex: F Assigned Patient Location: [place] Current Patient Location: [place] Accession/Order Number: [id number] Exam Date: 12/15/2024 14:35 Report Date: 12/15/2024 15:11 At the request of: ADRIANNE KELLOGG Procedure: CT lung screening low-dose CT CHEST WITHOUT CONTRAST, LOW DOSE SCREENING: CLINICAL DATA: A 54-year old current smoker, smoking for 30 pack-years. COMPARISON: None TECHNIQUE: Noncontrast axial CT scan images of the chest were obtained under the low dose screening CT protocol. Coronal and sagittal reconstructed images were also submitted. FINDINGS: Mediastinum : Suboptimal evaluation due to low-dose technique. Thoracic aorta appears normal in caliber. Pulmonary trunk appears nondilated. No pericardial effusion. No lymphadenopathy. The esophagus is grossly unremarkable. Lungs: No focal consolidation, pneumothorax or pleural effusion. Trachea and distal airways appear patent. Diffuse bronchial wall thickening. Emphysema. Mild lung scarring. No suspicious noncalcified pulmonary nodule or mass. Upper abdomen: No acute findings. Liver cyst. Bony thorax and chest wall: Soft tissues surrounding the chest wall demonstrate no acute findings. Osseous structures demonstrate degenerative change. CT/CT lung screening low-dose IMPRESSION: NO SUSPICIOUS PULMONARY NODULE OR MASS. LUNG - RADS Version 1.0 Assessment: Category 1, Negative (No nodules and definitely benign nodules). Management: Continue annual lung screening with LDCT in 12 months. Impression dictated by: Lloyd Flores Jr., D.O. 12/15/2024 3:11 PM Dictation Location: [employer] Electronically authenticated by: [id number] Y Date: 12/15/2024 15:11
--- OUTSIDE RECORDS SUMMARY | 2024-12-15 14:13 | XMS_ITS | CCD ---
Author Organization [facility] CliniSyky Care Team Providers Care Minister Assistant Name Role Phone DO Heri Antonio Attending [...] JOCELYNE, DR CROSS Primary Care Unavailable Daniel, SUPERVISOR [employer] Paola William Primary Care Provider MD Vlad Aguilar Attending Provider MD Prudencio Crain Attending Provider Prudencio Crain Attending Unavailab Prudencio Luther Admitting Unavailab le Daniel, Paola Stewart Primary Care Unavailable Daniel DEBUBBLIZER-C, Paola A Attending Unavailable Daniel DEBUBBLIZER-C, Paola A Primary Care Unavailable Daniel DEBUBBLIZER-C, Paola A Attending Unavailable Daniel DEBUBBLIZER-C, Paola A Primary Care Unavailable Daniel DEBUBBLIZER-C, Paola A Primary Care Unavailable Daniel DEBUBBLIZER-C, Paola A Attending Unavailable Daniel DEBUBBLIZER-C, Paola A Primary Care Unavailable Daniel DEBUBBLIZER-C, Paola A Attending Unavailable Daniel DEBUBBLIZER-Paola Leo Primary Care Unavailable Daniel DEBUBBLIZER-CPaola Attending Unavailable Allergies Allergy Classification Reported Allergen(s) Allergy Type Date of Onset Reaction(s) Facility (1 source) Amoxicillin Drug Allergy 6 [facility] Repository (2 sources) Penicillin; Translations: [penicillin] Drug Allergy 7 [facility] Repository (2 sources) Penicillins; Translations: [Penicillins] Allergy to substance 4 [facility] (1 source) Grass; Translations: [Grass] Propensity to adverse reactions to drug (disorder) [facility] Repository Medications Current Medications Medication Drug Class(es) Dates Sig (Normalized) Sig (Original) [id number] actuat albuterol 0.09 mg/actuat metered dose [...] Twice daily September 04, 2023 12:00am Tiotropium [place] (Spiriva With Handihaler) 18 mcg capsule, w/inhalation device (1 source) Start: 09-04-2023 take 1 capsule by inhalation once daily at bedtime Tiotropium [place] (Spiriva With Handihaler) 18 mcg capsule, w/inhalation [...] te Episodic/Chronic Other aftercare (1 source) Other extermination supervisor (current) drug therapy; Translations: [OTH RESIDENTIAL CURRENT DRUG THERAPY] Onset: 06-05-2021 Episodic Other [...] Facil ity Patient Letteron 06-02-2024 Patient Letter [id number] [facility] Outside Recordson 06-01-2024 Outside Records Pt was a no show for her appointment and has not rescheduled [Electronically Signed on: 06/02/2024 08:19 EST] Carey De La Rosa [Verified on: 06/02/2024 08:19 EST] Carey De La Rosa [facility] HCG ( test) IA.rapi d Ql (U)Ordered By: Kashif Perez on 10-03-2023 HCG ( test) Ql (U) Negative [facility] HCG ( test) IA.rapi d Ql (U)Ordered By: Pelon Stahl on 09-05-2023 HCG ( test) Ql (U) Negative [facility] MRI LSPINE WO CONon 01-10-20 MRI [...] MAHOGANY THURMAN Date: 2022-01-09 17:20 Normal [facility] CBC AUTO DIFFon 03-31-2021 BASO # 0.1 103/ul Normal 0.0-0.1 [facility] Comment on above: Performed By: #### C BC #### [facility] Laboratory [address] [address] [address] Kacy Mane Basophils/100 WBC (Bld) 0.6 % Normal 0.2-2.0 [facility] Comment on above: Performed By: #### C BC #### [facility] [address] [address] [address] Kacy Mane EO # 0.3 103/ul Normal 0.0-0.7 [facility] Comment on above: Performed By: #### C BC #### [facility] Laboratory [address] [place] [address] Dr. Kacy Mane Eosinophils/100 WBC (Bld) 3.4 % Normal 0.9-7.0 [facility] Comment on above: Performed By: #### C BC #### [facility] [address] [place] [address] Dr. Kacy Mane Erythrocyte distribution width (RBC) [Ratio] 14.1 % Normal 11.0-15.0 [facility] Comment on above: Performed By: #### C BC #### [facility] [address] [place] [address] Dr. Kacy Mane Hematocrit (Bld) [Volume fraction] 39.1 % Normal 36.0-48.0 [facility] Comment on above: Performed By: #### C BC #### [facility] [address] [place] [address] Dr. Kacy Mane Hemoglobin (Bld) [Mass/Vol] 12.7 g/dL Normal 12.0-16.0 [facility] Comment on above: Performed By: #### C BC #### [facility] [address] [place] [address] Dr. Kacy Mane IG # 0.03 10e3/ul Normal 0.00-0.03 [facility] Comment on above: Performed By: #### C BC #### [facility] [address] [place] [address] Dr. Kacy Mane IG % 0.4 % Normal 0.0-0.5 [facility] Comment on above: Performed By: #### C BC #### [facility] [address] [place] [address] Dr. Kacy Mane LYMPH # 2.3 103/ul Normal 1.2-3.8 [facility] Comment on above: Performed By: #### C BC #### [facility] [address] [place] [address] Dr. Kacy Mane Lymphocytes/100 WBC (Bld) 27.3 % Normal 20.5-60.0 [facility] Comment on above: Performed By: #### C BC #### [facility] [address] [place] [address] Dr. Kacy Mane MANUAL DIFF REQ NO Normal [facility] Comment on above: Performed By: #### C BC #### [facility] [address] [place] [address] Dr. Kacy Mane MCH (RBC) [Entitic mass] 32.1 pg Normal 26.7-34.0 [facility] Comment on above: Performed By: #### C BC #### [facility] [address] [place] [address] Dr. Kacy Mane MCHC (RBC) [Mass/Vol] 32.5 g/dL Normal 29.9-35.2 [facility] Comment on above: Performed By: #### C BC #### [facility] [address] [place] [address] Dr. Kacy Mane MCV (RBC) [Entitic vol] 98.7 fL Normal 81.0-99.0 [facility] Comment on above: Performed By: #### C BC #### [facility] [address] [place] [address] Dr. Kacy Mane MONO # 0.7 103/ul Normal 0.3-0.8 [facility] Comment on above: Performed By: #### C BC #### [facility] [address] [place] [address] Dr. Kacy Mane Monocytes/100 WBC (Bld) 8.1 % Normal 1.7-12.0 [facility] Comment on above: Performed By: #### C BC #### [facility] [address] [place] [address] Dr. Kacy Mane NEUT # 5.0 103/ul Normal 1.4-6.5 [facility] Comment on above: Performed By: #### C BC #### [facility] [address] [place] [address] Dr. Kacy Mane Neutrophils/100 WBC (Bld) 60.2 % Normal 43.0-75.0 [facility] Comment on above: Performed By: #### C BC #### [facility] [address] [place] [address] Dr. Kacy Mane Platelet mean volume (Bld) [Entitic vol] 9.2 fL Critically low 9.5-13.5 [facility] Comment on above: Performed By: #### C BC #### [facility] [address] [address] [address] Kacy Mane PLT 276 103/ul Normal 150-450 [facility] Comment on above: Performed By: #### C BC #### [facility] [address] [address] [address] Kacy Mane RBC 3.96 106/ul Critically low 4.20-5.40 [facility] Comment on above: Performed By: #### C BC #### [facility] [address] [place] [address] Dr. Kacy Mane WBC 8.3 103/ul Normal 4.0-11.0 [facility] Comment on above: Performed By: #### C BC #### [facility] [address] [place] [address] Dr. Kacy Mane LIPID PROFILEon 03-30-2021 CHOL-HDL RATIO NORM SEE BELOW Normal [facility] Comment on above: Result Comment: 3.3 - 4.4 LOW RISK 4.4 - 7.1 AVERAGE RISK 7.1 - 11.0 MODERATE RISK >11.0 HIGH RISK Performed By: #### L IPID, TSH, CMP #### [facility] [address] [place] [address] Dr. Kacy Mane Cholesterol [Mass/Vol] 153 mg/dL Normal <=200 [facility] Comment on above: Performed By: #### L IPID, TSH, CMP #### [facility] [address] [place] [address] Dr. Kacy Mane Cholesterol in HDL [Mass/Vol] 41 mg/dL Normal [facility] Comment on above: Performed By: #### L IPID, TSH, CMP #### [facility] [address] [place] [address] Dr. Kacy Mane Cholesterol in LDL [Mass/Vol] 98.4 mg/dL Normal [facility] Comment on above: Performed By: #### L IPID, TSH, CMP #### [facility] [address] [address] [address] Kacy Mane Cholesterol.total/ Cholesterol in HDL [Mass ratio] 3.7 {ratio} Normal [facility] Comment on above: Performed By: #### L IPID, TSH, CMP #### [facility] [address] [address] [address] Kacy Mane HDL NORMAL > or = 60 mg/dl - LO W CARDIOVASCULAR RISK <40 mg/dl - HIGH CARDIOVASCULAR RISK Normal [facility] Comment on above: Performed By: #### L IPID, TSH, CMP #### [facility] [address] [address] [address] Kacy Mane LDL CALC NORMAL SEE BELOW Normal [facility] Comment on above: Result Comment: <100 mg/dl OPTIMAL 100 - 129 mg/dl NEAR OR ABOVE OPTIMAL 130 - 159 mg/dl BORDERLINE HIGH 160 - 189 mg/dl HIGH >190 mg/dl VERY HIGH Performed By: #### L IPID, TSH, CMP #### [facility] [address] [address] [address] Kacy Mane Triglyceride [Mass/Vol] 68 mg/dL Normal <=150 [facility] Comment on above: Performed By: #### L IPID, TSH, CMP #### [facility] [address] [address] [address] Kacy Mane VLDL CALC 13.6 mg/dL Normal [facility] Comment on above: Performed By: #### L IPID, TSH, CMP #### [facility] [address] [address] [address] Kacy Mane PROF 14(COMP METB)on 021 Albumin [Mass/Vol] 3.1 g/dL Critically low 3.5-5.0 [facility] Comment on above: Performed By: #### L IPID, TSH, CMP #### [facility] [address] [place] [address] Dr. Kacy Mane Albumin/Globulin [Mass ratio] 0.8 {ratio} Normal [facility] Comment on above: Performed By: #### L IPID, TSH, CMP #### [facility] [address] [address] [address] Kacy Mane ALP [Catalytic activity/Vol] 89 U/L Normal 38-126 [facility] Comment on above: Performed By: #### L IPID, TSH, CMP #### [facility] [address] [address] [address] Kacy Mane ALT [Catalytic activity/Vol] 26 U/L Normal 9-52 [facility] Comment on above: Performed By: #### L IPID, TSH, CMP #### [facility] [address] [place] [address] Dr. Kacy Mane Anion gap [Moles/Vol] 11.3 mmol/L Normal [facility] Comment on above: Performed By: #### L IPID, TSH, CMP #### [facility] [address] [place] [address] Dr. Kacy Mane AST [Catalytic activity/Vol] 16 U/L Normal 14-36 [facility] Comment on above: Performed By: #### L IPID, TSH, CMP #### [facility] [address] [place] [address] Dr. Kacy Mane Bilirubin [Mass/Vol] 0.3 mg/dL Normal 0.2-1.3 [facility] Comment on above: Performed By: #### L IPID, TSH, CMP #### [facility] [address] [place] [address] Dr. Kacy Mane Calcium [Mass/Vol] 8.7 mg/dL Normal 8.4-10.2 [facility] Comment on above: Performed By: #### L IPID, TSH, CMP #### [facility] [address] [place] [address] Dr. Kacy Mane Chloride [Moles/Vol] 103 mmol/L Normal 98-107 [facility] Comment on above: Performed By: #### L IPID, TSH, CMP #### [facility] [address] [place] [address] Dr. Kacy Mane CO2 [Moles/Vol] 27.0 mmol/L Normal 22.0-30.0 [facility] Comment on above: Performed By: #### L IPID, TSH, CMP #### [facility] [address] [address] [address] Kacy Mane Creatinine [Mass/Vol] 1.23 mg/dL Critically high 0.52-1.04 [facility] Comment on above: Performed By: #### L IPID, TSH, CMP #### [facility] [address] [address] [address] Kacy Mane EGFR-AF FILIPINO 55 mL/min/1.73m2 Critically low >=60 [facility] Comment on above: Performed By: #### L IPID, TSH, CMP #### [facility] [address] [place] [address] Dr. Kacy Mane EGFR-NON AF FILIPINO 46 mL/min/1.73m2 Critically low >=60 [facility] Comment on above: Performed By: #### L IPID, TSH, CMP #### [facility] [address] [place] [address] Dr. Kacy Mane Globulin (S) [Mass/Vol] 3.8 g/dL Normal [facility] Comment on above: Performed By: #### L IPID, TSH, CMP #### [facility] [address] [place] [address] Dr. Kacy Mane Glucose [Mass/Vol] 98 mg/dL Normal 74-106 [facility] Comment on above: Performed By: #### L IPID, TSH, CMP #### [facility] [address] [place] [address] Dr. Kacy Mane Potassium [Moles/Vol] 4.3 mmol/L Normal 3.4-5.0 [facility] Comment on above: Performed By: #### L IPID, TSH, CMP #### [facility] [address] [place] [address] Dr. Kacy Mane Protein [Mass/Vol] 6.9 g/dL Normal 6.1-8.2 [facility] Comment on above: Performed By: #### L IPID, TSH, CMP #### [facility] [address] [place] [address] Dr. Kacy Mane Sodium [Moles/Vol] 137 mmol/L Normal 137-145 [facility] Comment on above: Performed By: #### L IPID, TSH, CMP #### [facility] [address] [place] [address] Dr. Kacy Mane Urea nitrogen [Mass/Vol] 19.0 mg/dL Critically high 7.0-17.0 [facility] Comment on above: Performed By: #### L IPID, TSH, CMP #### [facility] [address] [place] [address] Dr. Kacy Mane Urea nitrogen/Creatinin e [Mass ratio] 15.4 mg/mg Normal [facility] Comment on above: Performed By: #### L IPID, TSH, CMP #### [facility] [address] [place] [address] Dr. Kacy Mane TSHon 03-30-2021 TSH 1.221 uIU/mL Normal 0.470-4.680 [place] Comment on above: Performed By: #### L IPID, TSH, CMP #### [facility] [address] [place] [address] Dr. Kacy Mane TSH RANGE SEE BELOW Normal [facility] Comment on above: Result Comment: <0.3 4 UIU/ml HYPERTHYROID 0.34-5.60 UIU/ml EUTHYROID >5.60 UIU/ml HYPOTHYROID Performed By: #### L IPID, TSH, CMP #### [facility] [address] [place] [address] Dr. Kacy Mane VITAMIN B12on 03-30-2021 Cobalamin (Vitamin B12) [Mass/Vol] 715.0 pg/mL Normal 239.0-931.0 [facility] Comment on above: Performed By: #### V ITB12, VITAD #### [facility] [address] [place] [address] Dr. Kacy Mane VITAMIN D 25 OHon 03-30-2021 VIT D 25-OH 57.1 ng/mL Normal [facility] Comment on above: Performed By: #### V ITB12, VITAD #### [facility] [address] [place], [place] [address] Dr. Kacy Mane VIT D RANGES SEE BELOW Normal [facility] Comment on above: Result Comment: <20 ng/mL Vit D deficient 20 - <30 ng/mL Vit D insufficient 30 - 100 ng/mL Vit D sufficient >100 ng/mL Potential Toxicity Performed By: #### V ITB12, VITAD #### [facility] [address] [address] [address] Kacy Mane Vital Signs Date Time Vital Sign Value Performing Clinician Faci lity 10-03-2023 10:55-0400 Diastolic blood pressure 69 mm[Hg] [employer] Paola Daniel Work Phone: [facility] 10-03-2023 10:55-0400 Heart rate 72 /min [employer] Paola Daniel Work Phone: [facility] 10-03-2023 10:55-0400 Respiratory rate 16 /min [employer] Paola Daniel Work Phone: [facility] 10-03-2023 10:55-0400 SaO2% (BldA) [Mass fraction] 93 % [employer] Paola Daniel Work Phone: [facility] 10-03-2023 10:55-0400 Systolic blood pressure 109 mm[Hg] [employer] Paola Daniel Work Phone: [facility] 10-03-2023 09:17-0400 Body height 162.56 cm [employer] Paola Daniel Work Phone: [facility] 10-03-2023 09:17-0400 Body temperature 98 [degF] [employer] Paola Daniel Work Phone: [facility] 10-03-2023 09:17-0400 Body weight 100.69 kg [employer] Paola Daniel Work Phone: [facility] 09-05-2023 11:08-0400 Diastolic blood pressure 80 mm[Hg] [employer] Paola Daniel Work Phone: [facility] 09-05-2023 11:08-0400 Heart rate 79 /min [employer] Paola Daniel Work Phone: [facility] 09-05-2023 11:08-0400 Respiratory rate 16 /min [employer] Paola Daniel Work Phone: [facility] 09-05-2023 11:08-0400 SaO2% (BldA) [Mass fraction] 97 % [employer] Paola Daniel Work Phone: [facility] 09-05-2023 11:08-0400 Systolic blood pressure 121 mm[Hg] [employer] Paola Daniel Work Phone: [facility] 09-05-2023 09:23-0400 Body height 162.56 cm [employer] Paola Daniel Work Phone: [facility] 09-05-2023 09:23-0400 Body temperature 98.1 [degF] [employer] Paola Daniel Work Phone: [facility] 09-05-2023 09:23-0400 Body weight 90.71 kg [employer] Paola Daniel Work Phone: [facility] Encounters Encounter Date Encounter Type Care Provider Facility Start: 12-08-2024 ambulatory Paola A Daniel DEBUBBLIZER-C Facil ity:[facility] Start: 11-16-2024 ambulatory Prudencio Montero acility:[facility] Start: 06-10-2024 ambulatory Paola A Daniel DEBUBBLIZER-C Facil ity:[facility] Start: 06-01-2024 ambulatory Paola A Daniel DEBUBBLIZER-C Facil ity:[facility] Start: 05-28-2024 ambulatory Paola A Daniel DEBUBBLIZER-C Facil ity:[facility] Start: 05-21-2024 ambulatory Paola A Daniel DEBUBBLIZER-C Facil ity:[facility] Start: 10-03-2023 End: 10-03-2023 Admission to same day surgery center [employer] Paola Daniel Work Phone: [facility] Start: 10-03-2023 End: 10-03-2023 ambulatory DANIEL Paola William Daniel Work Phone: [facility] Work Phone: Start: 09-11-2023 Registered Recurring DANIEL Posadaert Work Phone: [facility] Start: 09-05-2023 End: 09-05-2023 Admission to same day surgery center DANIEL Guevara Daniel Work Phone: [facility] Start: 09-04-2023 End: 09-04-2023 Departed Referred DANIEL Posadaert Work Phone: [facility] Work Phone: Start: 02-13-2022 End: 02-14-2022 ambulatory PAOLA SANCHEZ Facility:[facility] Start: 01-09-2022 End: 01-10-2022 ambulatory WENDY ANTONIO Facility:[facility] Start: 07-25-2021 End: 07-25-2021 Patient encounter procedure DO Heri Antonio Work Phone: [facility] [address] Start: 07-03-2021 End: 07-04-2021 ambulatory WENDY ANTONIO Facility:[facility] Start: 06-03-2021 End: 06-03-[address] LORNA LIGHT Facility:[facility] Start: 03-30-2021 End: 03-31-[address] DOCTOR CASANOVA Facility:[facility] Procedures Date Procedure Procedure Detail Performing Clinician Start: 10-03-2023 Phacoemulsification of cataract with intraocular lens implantation DANIEL Guevara Daniel Work Phone: Start: 09-05-2023 Phacoemulsification of cataract with intraocular lens implantation [employer] Paola Daniel Work Phone: Plan of Treatment Date Care Activity Detail Author Start: 10-03-2023 [facility] Start: 09-05-2023 [facility] Start: 09-05-2023 [facility] Patient Education Know your Meds [facility] Work Phone: Patient referral [facility] Work Phone: Payers Date Payer Category Payer Self-pay [id number] 2022 Medicaid [id number] 1970 Unknown [id number] 2.16.84 [id number] 1968 Unknown [id number] 2.16.84 [id number] 1968 Unknown [id number] 2.16.84 [id number] 1968 Unknown [id number] 2.16.84 [id number] 1968 Unknown [id number] 2.16.84 [id number] 1968 Unknown [id number] 2.16.8 [id number] 1968 Unknown [id number] 2.16.8 [id number] 1968 Unknown [id number] 2.16.8 [id number] 1968 Unknown [id number] 2.16.8 [id number] 1968 Unknown [id number] 2.16.8 [id number] 1959 Unknown [id number] 1959 Unknown [id number] Unknown [id number] Unknown [id number] 2.16.8 [id number] Social History Date Type Detail Facility Tobacco smoking stat [facility] Unknown if ever smoked [facility] Work Phone: Start: 1970 Sex Assigned At Female F [facility] Start: 10-03-2023 Tobacco smoking stat [facility] Smoker (finding) [facility] Medical Equipment Procedure Code Equipment Code Equipment Origin al Text Equipment Identifier Dates Phacoemulsification of cataract with intraocular lens implantation Posterior-chamber intraocular lens, pseudophakic ()[id number] FDA Start: 09-05-2023 Goals Date Patient Goal [...] low back pain. The patient works at [employer]. The patient rates the pain as a [...] aquatic program. CC: Hugo Wylie, SHANTA [facility] Evaluation note Note Date & Type Note Facility Evaluation note [facility] Discharge instructions [...] worsening of your eyesight. Please call your health type technician during normal business hours. If after business hours call Dr. Vlad Aguilar at his cell [phone] or his office [phone]. [facility] Work Phone: Chief Complaint and Reason for Visit Chief Complaint r29.523 Chief Complaint Right Eye Cataract Right Eye [...] DO Attending Provider Active Paola Sanchez , SUPERVISOR WHEEL SHOP DEBUBBLIZER-C Primary Care Provider Active Team Status: Active Member Role Status Dates Paola Sanchez SUPERVISOR WHEEL SHOP DEBUBBLIZER-C Primary Care Provider Active Team Status: Inactive Member Role Status Dates Paola Sanchez SUPERVISOR WHEEL SHOP DEBUBBLIZER-C Primary Care Provider Active Start: September 04, 2023 End: September 04, 2023 Vlad Aguilar MD Attending Provider Active Start: September 04, 2023 End: September 04, 2023 Team Status: Inactive Member Role Status Dates Paola Sanchez SUPERVISOR WHEEL SHOP DEBUBBLIZER-C Primary Care Provider Active Start: September 05, 2023 End: September 05, 2023 Vlad Aguilar MD Attending Provider Active Start: September 05, 2023 End: September 05, 2023 Team Status: Active Member Role Status Dates Paola Sanchez SUPERVISOR WHEEL SHOP DEBUBBLIZER-C Primary Care Provider Active Start: September 11, 2023 Prudencio Crain MD Attending Provider Active Start: September 11, 2023 Team Status: Inactive Member Role Status Dates Paola Sanchez , SUPERVISOR WHEEL SHOP DEBUBBLIZER-C Primary Care Provider Active Start: October 03, 2023 End: October 03, 2023 Vlad Aguilar MD Attending Provider Active Start: October 03, 2023 End: October 03, 2023 Goals (unrecognized section and content) Goals may be documented in a n alternate section INFORMATION SOURCE (unrecogn ized section and content) DATE CREATED AUTHOR 02/18/2022 [facility] DATE CREATED AUTHOR AUTHOR'S ORGANIZ ATION 12/05/2024 [facility] DATE CREATED AUTHOR AUTHOR'S ORGANIZ ATION 12/06/2024 [facility] FOR RECORDS PERTAINING TO PATIENTS WHO [...] BE BASED ON THE PRIMARY CLINICAL RECORDS. [facility]. provides no warranty or guarantee of the accuracy or completeness of information in this document.
== END 2024-12-15 13:45 | disposition home or self-care (01) ==
LOC: US 13:44
DX: N92.0 Excessive and frequent menstruation with regular cycle (principal); F17.210 Nicotine dependence, cigarettes, uncomplicated; J44.9 Chronic obstructive pulmonary disease, unspecified; N94.6 Dysmenorrhea, unspecified; D64.9 Anemia, unspecified
CPT/HCPCS: 71271; 76830; 76856

== ENCOUNTER 2025-02-15 19:49 | Outpatient (REF) | payer MEDICAID, SELFPAY ==
--- OUTSIDE RECORDS SUMMARY | 2025-02-15 13:20 | XMS_ITS | Encounter Summary ---
Author Organization [facility] Address [address] [facility] [place] [address] Care Team Providers Care Die Cutter Diamond Name Role Phone Unavailable Primary Care Provider Unavailabl e Reason for Visit * ReasonCommentsPre-op VisitWell Women Visit Encounter Details DateTypeDepartmentCare Team (Latest Contact Info)Lyqrabvcsvb31/27/2025 1:20 PM EDTProcedure Visit [facility] [place] [facility] [address] [place] [phone] Martin Lemons, [address] [place], [place] [phone] Well woman exam with routine gynecological exam; Pre-op examination; Menorrhagia with irregular cycle; Thickened endometrium; Postmenopausal state; Encounter for screening mammogram for malignant neoplasm of breast Social History Tobacco UseTypesPacks/DayYears UsedDateSmoking Tobacco: Never Assessed CommentsUnknownSex and Gender InformationValueDate RecordedSex Assigned at Not on fileLegal ZxiRpvewk79/03/2025 12:53 PM EDTGender IdentityNot on file Sexual OrientationNot on filedocumented as of this encounter Last Filed Vital Signs Vital SignReadingTime TakenCommentsBlood Msufgukm010/7202/15/2025 1:51 PM EDT Pulse--Temperature--Respiratory Rate--Oxygen Saturation--Inhaled Oxygen Concentration--Iqeond86 kg (209 lb 8 oz)02/15/2025 1:51 PM EDTHeight--Body Mass Index--documented in this encounter Plan of Treatment NameTypePriorityAssociated [...]
--- OUTSIDE RECORDS SUMMARY | 2025-02-15 19:53 | XMS_ITS | Encounter Summary ---
Author Organization [facility] Address [address] [place] [place] [address] Care Team Providers Care Crm Coordinator Name Role Phone Unavailable Primary Care Provider Unavailabl e Reason for Visit * ReasonCommentsMed Refill Encounter Details DateTypeDepartmentCare Team (Latest Contact Info)Cecggjinuhk27/14/2025Refill [facility] [address] [place] [phone] Martin Lemons, [address] [place] [address] Irritation of scar Social History Tobacco UseTypesPacks/DayYears UsedDateSmoking Tobacco: Never Assessed CommentsUnknownSex and Gender InformationValueDate RecordedSex Assigned at Not on fileLegal MpcOcbndh95/03/2025 12:53 PM EDTGender IdentityNot on file Sexual OrientationNot on filedocumented as of this encounter Miscellaneous Notes * Telephone Encounter - Sabi Snyder LPN - 02/03/2025 10:11 AM EDT Refill request received and script sent. documented in this encounter Plan of Treatment Not on file documented as of this encounter Visit Diagnoses Diagnosis Irritation of scar documented in this encounter
--- OUTSIDE RECORDS SUMMARY | 2025-02-15 19:53 | XMS_ITS | Encounter Summary ---
Author Organization [facility] Address [address] [place] [address] Care Team Providers Care Inside Sales Lead Name Role Phone Unavailable Primary Care Provider Unavailabl e Reason for Visit * ReasonCommentsMed Refill Encounter Details DateTypeDepartmentCare Team (Latest Contact Info)Witsvhsfori01/24/2025Refill [facility] [address] [place] [address] Martin Lemons DO [address] [place], [place] [phone] Irritation of scar Social History Tobacco UseTypesPacks/DayYears UsedDateSmoking Tobacco: Never Assessed CommentsUnknownSex and Gender InformationValueDate RecordedSex Assigned at Not on fileLegal KxpDjnekd25/03/2025 12:53 PM EDTGender IdentityNot on file Sexual OrientationNot on filedocumented as of this encounter Plan of Treatment Not on file documented as of this encounter Visit Diagnoses Diagnosis Irritation of scar documented in this encounter
--- OUTSIDE RECORDS SUMMARY | 2025-02-15 19:53 | XMS_ITS | Clinical Summary ---
Author Organization [facility] Address [address] [place] [address] Care Team Providers Care Mold Repair Technician Name Role Phone Unavailable Primary Care Provider Unavailabl e Allergies Active AllergyReactionsCriticalityNoted DateCommentsGrass Pollen(K-O-R-T-Swt Reagan)01/05/20256186Bazvmmjtyzw22/16/2025 Medications MedicationSigDispense QuantityRefillsLast FilledStart DateEnd DateStatus nystatin (Mycostatin) 124892 UNIT/GM powder Indications:Irritation of scarAPPLY TOPICALLY IN THE MORNING AND IN THE EVENING AND BEFORE BEDTIME. 15 g ctive nystatin (Mycostatin) 612300 UNIT/GM powder Indications:Irritation of scarApply topically in the morning and in the evening and before bedtime. 15 g Discontinued nystatin (Mycostatin) 548847 UNIT/GM powder Indications:Irritation of scarAPPLY TOPICALLY IN THE MORNING AND IN THE EVENING AND BEFORE BEDTIME. 15 g Discontinued Encounters DateTypeDepartmentCare NllwNkyxhufyrjc27/27/2025 1:20 PM EDTProcedure Visit NOMMartin [facility] [address] [place] [address] Martin Lemons DO Well woman exam with routine gynecological exam; Pre-op examination; Menorrhagia with irregular cycle; Thickened endometrium; Postmenopausal state; Encounter for screening mammogram for malignant neoplasm of wrkjhe2302/15/2025 Bamboo flowsheet N[facility]Martin [facility] [address] [address] Martin Lemons DO 02/12/2025Refill N[facility]Martin [facility] [address] [address] Martin Lemons, DO Irritation of scar02/02/2025Refill [facility] [address] [place] [address] [place] [address] Martin Lemons, DO Irritation of scar01/05/2025 1:30 PM EDTOffice Visit [facility] [address] [place] [address] [place] [address] Martin Lemons, DO Menorrhagia with irregular cycle; Thickened endometrium; Irritation of scar01/05/2025amboo flowsheet N[facility]Martin [place] [facility] [place] [address] Martin Lemons, DO from Last 3 Months Social History Tobacco UseTypesPacks/DayYears UsedDateSmoking Tobacco: Never Assessed CommentsUnknownSex and Gender InformationValueDate RecordedSex Assigned at Not on fileLegal PuuYdkqre11/03/2025 12:53 PM EDTGender IdentityNot on file Sexual OrientationNot on file Last Filed Vital Signs Vital SignReadingTime TakenCommentsBlood Yhdsshlg542/7202/15/2025 1:51 PM EDT Pulse--Temperature--Respiratory Rate--Oxygen Saturation--Inhaled Oxygen Concentration--Okphks05 kg (209 lb 8 oz)02/15/2025 1:51 PM EDTHeight--Body Mass Index-- Plan of Treatment [place] [address]
--- OUTSIDE RECORDS SUMMARY | 2025-02-15 19:53 | XMS_ITS | Encounter Summary ---
Author Organization [facility] Address [address] [place] [address] Care Team Providers Care Arabic Professor Name Role Phone Unavailable Primary Care Provider Unavailabl e Encounter Details DateTypeDepartmentCare Team (Latest Contact Info)Fowatwoiclq71/27/2025amboo flowsheet [facility] [address] [address] Martin Lemons DO [address] [place], [place] [phone] Social History Tobacco UseTypesPacks/DayYears UsedDateSmoking Tobacco: Never Assessed CommentsUnknownSex and Gender InformationValueDate RecordedSex Assigned at Not on fileLegal HrjJaszkd25/03/2025 12:53 PM EDTGender IdentityNot on file Sexual OrientationNot on filedocumented as of this encounter Plan of Treatment Not on file documented as of this encounter Visit Diagnoses Not on filedocumented in this encounter
== END 2025-02-15 19:50 | disposition home or self-care (01) ==
LOC: LAB 19:49
PROVIDERS: Visit Provider Obstetrics & Gynecology
DX: Z01.419 Encounter for gynecological examination (general) (routine) without abnormal findings (principal)
CPT/HCPCS: 87624; 88175

== ENCOUNTER 2025-02-17 12:30 | Outpatient (OUT) | payer MEDICAID, SELFPAY ==
--- NOTE | 2025-02-17 12:37 | ECG_ITS ---
[facility] Test Date: 2025-02-17 Pat Name: GIULIANO ALLEN Department: Room: - Gender: Female Executive Communications Manager: : 1970 Requested By: RENEE KU Order Number: [id number] Reading MD: MIKE SIN Measurements Intervals [place] Rate: 71 P: 74 CO: 177 QRS: 37 QRSD: 81 T: 71 QT: 381 QTc: 415 Interpretive Statements SINUS RHYTHM NONSPECIFIC T-WAVE ABNORMALITY Compared to ECG 03/14/2018 10:09:42 T-wave abnormality now present ST (T wave) deviation no longer present Electronically Signed On 02-17-2025 18:40:12 EDT by MIKE SIN
--- OUTSIDE RECORDS SUMMARY | 2025-02-17 12:38 | XMS_ITS | CCD ---
Author Organization [facility] Care Team Providers Care Box Stacker Name Role Phone DO Heri Antonio Attending Provider [phone] Daniel, VOCATIONAL TEACHER Paola William Primary Care Provider JOCELYNE, DR CROSS [...] ANTONIO Consulting Unavailable WENDY ANTONIO Attending Unavailable ERICKC, DR CROSS Primary Care Unavailable Daniel, VOCATIONAL TEACHER Paola William Primary Care Provider MD Vlad Aguilar Attending Provider MD Prudencio Crain Attending Provider Daniel MACHINIST GENERAL-C, Paola A Primary Care Unavailable Daniel MACHINIST GENERAL-C, Paola A Attending Unavailable Daniel MACHINIST GENERAL-C, Paola A Primary Care Unavailable Daniel MACHINIST GENERAL-C, Paola A Attending Unavailable Daniel MACHINIST GENERAL-C, Paola A Primary Care Unavailable Daniel MACHINIST GENERAL-C, Paola A Attending Unavailable Daniel MACHINIST GENERAL-C, Paola A Primary Care Unavailable Daniel MACHINIST GENERAL-C, Paola A Attending Unavailable Daniel MACHINIST GENERAL-C, Paola A Primary Care Unavailable Daniel MACHINIST GENERAL-C, Paola A Attending Unavailable Unavailable Primary Care Provider UnavailPrudencio Dueñas Attending Unavailab Prudencio Luther Admitting Unavailab Paola Tineo Primary Care Unavailable RENEE LEMONS Attending Unavailable RENEE LEMONS Attending Unavailable Allergies Allergy ClassificationReported Allergen(s)Allergy TypeDate of OnsetReaction(s) Facility (1 source)AmoxicillinDrug Usvnrad45-77-7420Ceu [facility] Repository (2 sources)Penicillin; Translations: [penicillin]Drug Whqbxac77-35-3365Wlx [facility] Repository (6 sources)Penicillins; Translations: [Penicillins]Allergy to substance 57-29-8495SynssRgjaxlnaqC[facility] ([facility] source)Grass; Translations: [Grass]Propensity to adverse reactions to drug (disorder)[facility] Repository (4 sources)Grass pollenDrug Arbaysl38-29-0402OQHX [facility] Medications Current Medications MedicationDrug Class(es)DatesSig (Normalized)Sig (Original)[id number] 200 actuat albuterol 0.09 mg/actuat metered dose inhaler (1 source)beta2-Adrenergic AgonistStart: 20-17-4237Hxwuanjqw Sulfate Active 1 - 2 INH INHALATION EVERY 4-6 HOURS September 04, 2023 12:00amALPRAZolam 1 mg oral tablet (1 source)BenzodiazepineStart: 52-97-1552eseu 1 mg by mouth twice daily Alprazolam Active 1 MG PO Twice daily September 04, 2023 12:00ambusPIRone hydrochloride 15 mg oral tablet (1 source)Start: 97-92-8522tjuu 15 mg by mouth once daily at bedtimeBuspirone Active 15 MG PO Daily at bedtime September 04, 2023 12:00amcholecalciferol 0.025 mg oral capsule (1 source)Vitamin DStart: 41-70-9478frez 25 ug by mouth once daily at bedtime Cholecalciferol (Vitamin D3) Active 25 MCG PO Daily at bedtime September 04, 2023 12:00ammelatonin 3 mg oral tablet (1 source)Start: 40-35-7012jzay 3-6 mg by mouth once daily at bedtimeMelatonin Active 3 - 6 MG PO Daily at bedtime September 04, 2023 12:00amMometasone-Formoterol (Dulera) 200-5 mcg/actuation HFA aerosol inhaler (1 source)Start: 92-42-2079Cszbpejbsx-Formoterol (Dulera) 200-5 mcg/actuation HFA aerosol inhaler Active 2 INH INHALATION Twice daily September 04, 2023 12:00am nystatin 100 unt/mg topical powder (4 sources)Polyene AntifungalStart: 01-05-2025 End: 51-85-7614gmcsrggu (Mycostatin) [id number] UNIT/GM powder Indications: Irritation of scar APPLY TOPICALLY IN THE MORNING AND IN THE EVENING AND BEFORE BEDTIME. 15 g 02/15/2025 02/15/2026 ActiveTiotropium [place] (Spiriva With Handihaler) 18 mcg capsule, w/inhalation device (1 source)Start: 70-84-8338xkhv 1 capsule by inhalation once daily at bedtime Tiotropium [place] (Spiriva With Handihaler) 18 mcg capsule, w/inhalation device Active 1 CAP INHALATION Daily at bedtime September 04, 2023 12:00amvitamin b12 0.1 mg oral tablet (1 source)Vitamin F41Eiqyh: 52-74-7451yiah 100 ug by mouth once daily at bedtime Cyanocobalamin (Vitamin B-12) Active 100 MCG PO Daily at bedtime September 04, 2023 12:00am Problems Active Problems Problem ClassificationProblemDateDocumented DateEpisodic/ChronicAsthma (4 sources)Unspecified asthma, uncomplicated; Translations: [UNSPECIFIED ASTHMA UNCOMPLICATED]Onset: 01-28-9324QbnpklpKtusthj obstructive pulmonary disease and bronchiectasis (1 source)Chronic obstructive pulmonary disease, unspecified; Translations: [COPD UNSPECIFIED]Onset: 45-03-7772HavwudsZdyarzfzv disorders (3 sources)Menometrorrhagia; Translations: [Excessive and frequent menstruation with irregular cycle]60-88-0456LatfuyoVdwkmonvsjl deficiencies (1 source)Vitamin D deficiency, unspecified; Translations: [VITAMIN D DEFICIENCY UNSPECIFIED]Onset: 81-33-8828ScgnvnwYfsrw connective tissue disease (4 sources)Other symptoms and signs involving the musculoskeletal system; Translations: [OTH SX AND SYMP INVOLV MUSCULOSKELTAL]Onset: 15-85-7740Iddkiteo Other nervous system disorders (1 source)Polyneuropathy, unspecified; Translations: [POLYNEUROPATHY UNSPECIFIED]Onset: 05-25-7397FqepvysAehyn screening for suspected conditions (not mental disorders or infectious disease) (3 sources)Endometrium thickened; Translations: [Abnormal findings on diagnostic imaging of other specified body structures]14-16-9045SooqrciOqcob screening for suspected conditions (not mental disorders or infectious disease) (3 sources)Encounter for screening for diabetes mellitus; Translations: [Encounter for screening for lipoid disorders]Onset: EpisodicOther skin disorders (2 sources)Skin irritation ; Translations: [Scar conditions and fibrosis of skin]71-48-9835CglxtwvvVxjftecw codes; unclassified (1 source)Postmenopausal state; Translations: [Asymptomatic menopausal state] 56-98-2350GurarordVrnirsnytgf; intervertebral disc disorders; other back problems (1 source)Other intervertebral disc degeneration, lumbosacral region; Translations: [OTH IV DISC DEGEN LUMBOSACRAL RGN]Onset: 69-29-6697Kcvycai Spondylosis; intervertebral disc disorders; other back problems (2 sources)Intervertebral disc disorders with radiculopathy, lumbar region; Translations: [Spinal stenosis, lumbar region without neurogenic claudication] Onset: 95-58-6878IrebumbhEdsgmfnfpvuo (3 sources)LOW BACK PAIN, UNSPECIFIED; Translations: [LOW BACK PAIN, UNSPECIFIED]Onset: 02-18-2022 Past or Other Problems Problem ClassificationProblemDateDocumented DateEpisodic/ChronicOther aftercare (1 source)Other bed bug exterminator (current) drug therapy; Translations: [OTH USP CURRENT DRUG THERAPY]Onset: 51-09-9455PjkbzmcnRcigo skin disorders (4 sources)Rash and other nonspecific skin eruption; Translations: [RASH OTH NONSPECIFIC SKIN ERUPTION]Onset: 41-30-0544AhhimnhsOxzu and subcutaneous tissue infections (1 source)Local infection of the skin and subcutaneous tissue, unspecified; Translations: [LOCAL INFECT SKIN SUBQ TISSUE UNS]Onset: 79-91-2199Qwcihbcw Unclassified (1 source)LOW BACK PAIN, UNSPECIFIED; Translations: [LOW BACK PAIN, UNSPECIFIED] Onset: 02-13-2022 Results Test NameValueInterpretationReference RangeFacilityOutside Recordson 12-22-2024 Outside [id number]#1.00[facility] HospitalPatient Letteron 61-63-0843Eyfukhr Letter [id number]#1.00[facility] Outside Recordson 12-79-5279Mbnyrdz RecordsPt was a no show for her appointment and has not rescheduled [Electronically Signed on: 06/02/2024 08:19 EST] [facility] [Verified on: 06/02/2024 08:19 EST] [facility] ( test) IA.rapid Ql (U)Ordered By: Kashif Perez on 46-48-2460EVT ( test) Ql (U)[facility] [place].rapid Ql (U)Ordered By: Pelon Stahl on 63-19-7025HIQ ( test) Ql (U)[facility] HospitalMRI [facility] WO CONon 59-84-6433WXK [facility] CONEXAMINATION: MRI [facility] CON HISTORY: Musculoskeletal symptom ; bilateral leg [...] Electronically authenticated by: MAHOGANY THURMAN Date: 2022-01-09 17:20[facility] AUTO DIFFon 76-01-7052LCON #0.1 103/ulNormal0.0-0.1The [facility] HospitalComment on above:Performed By: #### CBC #### [facility] [address] [address] [address] Kacy ManeBasophils/100 WBC (Bld)0.6 %Normal0.2-2.0[facility] Comment on above:Performed By: #### CBC #### [facility] [address] [address] [address] Kacy Haque #0.3 103/ulNormal0.0-0.7The [facility] HospitalComment on above: Performed By: #### CBC #### [facility] [address] [address] [address] Kacy Cobososinophils/100 WBC (Bld)3.4 %Normal0.9-7.0The [facility] Comment on above:Performed By: #### CBC #### [facility] [address] [address] [address] Kacy Cobosrythrocyte distribution width (RBC) [Ratio]14.1 %Lscoqd85.0-15.0 The [facility] HospitalComment on above:Performed By: #### CBC #### [facility] [address] [place] [address] Dr. Kacy ManeHematocrit (Bld) [Volume fraction]39.1 %Lmwnme00.0-48.0The [facility] HospitalComment on above:Performed By: #### CBC #### [facility] [address] [place] [address] Dr. Kacy ManeHemoglobin (Bld) [Mass/Vol]12.7 g/mYHwlaeh77.0-16.0The [facility] HospitalComment on above:Performed By: #### CBC #### [facility] [address] [place] [address] Dr. Kacy Pollard #0.03 10e3/ulNormal0.00-0.03The [facility] HospitalComment on above:Performed By: #### CBC #### [facility] [address] [place] [address] Dr. Kacy Pollard %0.4 %Normal0.0-0.5The [facility] HospitalComment on above: Performed By: #### CBC #### [facility] [address] [place] [address] Dr. Kacy Skaggs #2.3 103/ulNormal1.2-3.8The [facility] HospitalComselect specialty hospital on above:Performed By: #### CBC #### [facility] [address] [place] [address] Dr. Kacy Romeromphocytes/100 WBC (Bld)27.3 %Wgaeox43.5-60.0The [facility] HospitalComment on above:Performed By: #### CBC #### [facility] [address] [place] [address] Dr. Kacy RomanUAL DIFF REQNONormalThe [facility] HospitalComment on above: Performed By: #### CBC #### [facility] [address] [place] [address] Dr. Kacy Zambrano (RBC) [Entitic mass]32.1 snAoniyu00.7-34.0The [facility] HospitalComment on above:Performed By: #### CBC #### [facility] [address] [address] [address] Kacy CarlisleHC (RBC) [Mass/Vol]32.5 g/kJJqqcvs31.9-35.2The [facility] HospitalComment on above:Performed By: #### CBC #### [facility] [address] [address] [address] Kacy CarlisleV (RBC) [Entitic vol]98.7 vVIwtlph84.0-99.0The [facility] HospitalComment on above:Performed By: #### CBC #### [facility] [address] [place] [address] Dr. Kacy Robles #0.7 103/ulNormal0.3-0.8The [facility] HospitalComment on above:Performed By: #### CBC #### [facility] [address] [place] [address] Dr. Kacy Mccoyocytes/100 WBC (Bld)8.1 %Normal1.7-12.0The [facility] Comment on above:Performed By: #### CBC #### [facility] [address] [place] [address] Dr. Kacy Sanches #5.0 103/ulNormal1.4-6.5The [facility] HospitalComment on above:Performed By: #### CBC #### [facility] [address] [address] [address] Kacy Straussutrophils/100 WBC (Bld)60.2 %Ftphhv01.0-75.0The [facility] HospitalComment on above:Performed By: #### CBC #### [facility] [address] [address] [address] Kacy Sanabrialet mean volume (Bld) [Entitic vol]9.2 fLCritically low 9.5-13.5The [facility] HospitalComment on above:Performed By: #### CBC #### [facility] [address] [place] [address] Dr. Kacy ManePLT276 103/pyFyosud223-363QrbSelect Medical OhioHealth Rehabilitation Hospital - Dublinment on above: Performed By: #### CBC #### [facility] [address] [address] [address] Kacy ManeRBC3.96 106/ulCritically low4.20-5.40The [facility] on above:Performed By: #### CBC #### [facility] [address] [address] [address] Kacy ManeWBC8.3 103/ulNormal4.0-11.0The [facility] Hospitalment on above: Performed By: #### CBC #### [facility] [address] [address] [address] Kacy Perry PROFILEon 15-87-7365SBZK-HDL RATIO NORMSEE OhioHealthComselect specialty hospital on above:Result Comment: 3.3 - 4.4 LOW RISK 4.4 - 7.1 AVERAGE RISK 7.1 - 11.0 MODERATE RISK >11.0 HIGH RISKPerformed By: #### LIPID, TSH, CMP #### [facility] [address] [address] [address] Kacy Jettesterol [Mass/Vol]153 mg/dLNormal<=200[facility] Comment on above:Performed By: #### LIPID, TSH, CMP #### [facility] [address] [address] [address] Kacy Jettesterol in HDL [Mass/Vol]41 mg/dLSamaritan North Health Center Comment on above:Performed By: #### LIPID, TSH, CMP #### [facility] [address] [address] [address] Kacy Jettesterol in LDL [Mass/Vol]98.4 mg/dLSamaritan North Health CenterComment on above:Performed By: #### LIPID, TSH, CMP #### [facility] [address] [address] [address] Kacy Finn.total/Cholesterol in HDL [Mass ratio]3.7 {ratio} NormalThe [facility] on above:Performed By: #### LIPID, TSH, CMP #### [facility] [address] [address] [address] Kacy Encinas NORMAL> or = 60 mg/dl - LOW CARDIOVASCULAR RISK <40 mg/dl - HIGH CARDIOVASCULAR RISKSamaritan North Health CenterComment on above:Performed By: #### LIPID, TSH, CMP #### [facility] [address] [address] [address] Kacy ManeLDL CALC NORMALSEE BELOWNoLakeHealth Beachwood Medical CenterComment on above:Result Comment: <100 mg/dl OPTIMAL 100 - 129 mg/dl NEAR OR ABOVE OPTIMAL 130 - 159 mg/dl BORDERLINE HIGH 160 - 189 mg/dl HIGH >190 mg/dl VERY HIGH Performed By: #### LIPID, TSH, CMP #### [facility] [address] [place] [address] Dr. Kacy ManeTriglyceride [Mass/Vol]68 mg/dLNormal<=150The [facility] Comment on above:Performed By: #### LIPID, TSH, CMP #### [facility] [address] [place] [address] Dr. Kacy BossLDL CALC13.6 mg/dLNoLakeHealth Beachwood Medical CenterComment on above: Performed By: #### LIPID, TSH, CMP #### [facility] [address] [place] [address] Dr. Kacy ManePROF 14(COMP METB)on 07-19-1713Uugiqfo [Mass/Vol]3.1 g/dL Critically low3.5-5.0The [facility] Hospitalment on above:Performed By: #### LIPID, TSH, CMP #### [facility] [address] [place] [address] Dr. Kacy MnaeAlbumin/Globulin [Mass ratio]0.8 {ratio}NormalThe [facility] on above:Performed By: #### LIPID, TSH, CMP #### [facility] [address] [place] [address] Dr. Kacy ManeALP [Catalytic activity/Vol]89 U/RUynnbc79-474Pvv [facility] Hospitalment on above:Performed By: #### LIPID, TSH, CMP #### [facility] [address] [address] [address] Kacy HughesT [Catalytic activity/Vol]26 U/LNormal9-52The [facility] Comment on above:Performed By: #### LIPID, TSH, CMP #### [facility] [address] [address] [address] Kacy Cardozaon gap [Moles/Vol]11.3 mmol/LNormalThe [facility] Comment on above:Performed By: #### LIPID, TSH, CMP #### [facility] [address] [address] [address] Kacy ManeAST [Catalytic activity/Vol]16 U/IVuovil09-73Ire [facility] HospitalComment on above:Performed By: #### LIPID, TSH, CMP #### [facility] [address] [place] [address] Dr. Kacy ManeBilirubin [Mass/Vol]0.3 mg/dLNormal0.2-1.3TKindred Hospital [facility] Comment on above:Performed By: #### LIPID, TSH, CMP #### [facility] [address] [address] [address] Kacy ManeCalcium [Mass/Vol]8.7 mg/dLNormal8.4-10.2[facility] Comment on above:Performed By: #### LIPID, TSH, CMP #### [facility] [address] [address] [address] Kacy ManeChloride [Moles/Vol]103 mmol/EPdpuos05-216Txy [facility] Comment on above:Performed By: #### LIPID, TSH, CMP #### [facility] [address] [address] [address] Kacy ManeCO2 [Moles/Vol]27.0 mmol/HVmysgy39.0-30.0The [facility] Comment on above:Performed By: #### LIPID, TSH, CMP #### [facility] [address] [address] [address] Kacy ManeCreatinine [Mass/Vol]1.23 mg/dLCritically high0.52-1.04[facility] CenterComment on above:Performed By: #### LIPID, TSH, CMP #### [facility] [address] [place] [address] Dr. Kacy CobosGFR-AF ZBLXCLNC84 mL/min/1.26h7Relyauwxzt low>=60The [facility] HospitalComment on above:Performed By: #### LIPID, TSH, CMP #### [facility] [address] [place] [address] Dr. Kacy CobosGFR-NON AF BGFGCVZP83 mL/min/1.72n8Yecypjvnai low>=60The [facility] HospitalComment on above:Performed By: #### LIPID, TSH, CMP #### [facility] [address] [place] [address] Dr. Kacy ManeGlobulin (S) [Mass/Vol]3.8 g/dLNormalThe [facility] HospitalComment on above:Performed By: #### LIPID, TSH, CMP #### [facility] [address] [place] [address] Dr. Kacy ManeGlucose [Mass/Vol]98 mg/aOVrbpqs93-915ImpAdena [facility] Medical Center Comment on above:Performed By: #### LIPID, TSH, CMP #### [facility] [address] [place] [address] Dr. Kacy ManePotassium [Moles/Vol]4.3 mmol/LNormal3.4-5.0[facility] Comment on above:Performed By: #### LIPID, TSH, CMP #### [facility] [address] [place] [address] Dr. Kacy ManeProtein [Mass/Vol]6.9 g/dLNormal6.1-8.2[facility] Comment on above:Performed By: #### LIPID, TSH, CMP #### [facility] [address] [place] [address] Dr. Kacy ManeSodium [Moles/Vol]137 mmol/EWswakg337-315RpcAdena Regional Medical Center Comment on above:Performed By: #### LIPID, TSH, CMP #### [facility] [address] [place] [address] Dr. Kacy Noland nitrogen [Mass/Vol]19.0 mg/dLCritically high7.0-17.0The [facility] on above:Performed By: #### LIPID, TSH, CMP #### [facility] [address] [place] [address] Dr. Kacy Noland nitrogen/Creatinine [Mass ratio]15.4 mg/mgNoLakeHealth Beachwood Medical CenterComselect specialty hospital on above:Performed By: #### LIPID, TSH, CMP #### [facility] [address] [place] [address] Dr. Kacy GatesHochencho 34-25-8075QIV5.221 uIU/mLNormal0.470-4.680The [facility] on above:Performed By: #### LIPID, TSH, CMP #### [facility] [address] [place] [address] Dr. Kacy DHILLONParkview Health Bryan HospitalComment on above: Result Comment: <0.34 UIU/ml HYPERTHYROID 0.34-5.60 UIU/ml EUTHYROID >5.60 UIU/ml HYPOTHYROIDPerformed By: #### LIPID, TSH, CMP #### [facility] [address] [place] [address] Dr. Kacy ManeVITAMIN B12on 53-79-2602Bjtwqgsjh (Vitamin B12) [Mass/Vol]715.0 pg/aWXgmyzv683.0-931.0The [facility] on above:Performed By: #### VITB12, VITAD #### [facility] [address] [place] [address] Dr. Kacy ManeVITAMIN D 25 OHon 49-04-9019RTV D 25-OH57.1 ng/mLNormalThe [facility] on above:Performed By: #### VITB12, VITAD #### [facility] [address] [place] [address] Dr. Kacy DHILLONSEAdena Fayette Medical CenterComselect specialty hospital on above: Result Comment: <20 ng/mL Vit D deficient 20 - <30 ng/mL Vit D insufficient 30 - 100 ng/mL Vit D sufficient >100 ng/mL Potential ToxicityPerformed By: #### VITB12, VITAD #### [facility] [address] [place] [address] Dr. Kacy Mane Vital Signs Date TimeVital SignValuePerforming ZfhmdueaqRbnzlnxx72-47-2803 13:51-0400Body oizeec47.03 kgCorey Vesta DO Work Phone: [facility] InstituteYecqnspcku73-20-6156 13:51-0400Diastolic blood tznuvhbw37 mm[Hg]Renee Vesta DO Work Phone: [facility] CenterGifapqzghq99-22-0339 13:51-0400Systolic blood rgguwoco659 mm[Hg]Renee Vesta DO Work Phone: [facility] InstituteSgxykbcguf23-14-2360 10:55-0400Diastolic blood vjawxxwu09 mm[Hg]VOCATIONAL TEACHER Paola Daniel Work Phone: [phone] [place], [place] 3395406-13-2024 10:55-0400 Heart rate72 /minAPRN Paola Daniel Work Phone: [phone] [place], [place] 3395406-13-2024 10:55-0400 Respiratory rate16 /minAPRN Paola Daniel Work Phone: [phone] [place], [place] 3395406-13-2024 10:55-0400 SaO2% (BldA) [Mass fraction]93 %VOCATIONAL TEACHER Paola Daniel Work Phone: [phone] [place], [place] 3395406-13-2024 10:55-0400 Systolic blood ylfrabga763 mm[Hg]VOCATIONAL TEACHER Paola Daniel Work Phone: [phone] [place], [place] 3395406-13-2024 09:17-0400 Body trovhm050.56 cmAPRN Paola Daniel Work Phone: [phone] [place], [place] 3395406-13-2024 09:17-0400 Body ryylysvfron46 [degF]VOCATIONAL TEACHER Paola Daniel Work Phone: [phone] [place], [place] 3395406-13-2024 09:17-0400 Body abrggq408.69 kgAPRN Paola Daniel Work Phone: [phone] [place], [place] 3395405-16-2024 11:08-0400 Diastolic blood hikooywf64 mm[Hg]VOCATIONAL TEACHER Paola Daniel Work Phone: [phone] [place], [place] 3395405-16-2024 11:08-0400 Heart rate79 /minAPRN Paola Daniel Work Phone: [phone] [place], [place] 3395405-16-2024 11:08-0400 Respiratory rate16 /minAPRN Paola Daniel Work Phone: [phone] [place], [place] 3395405-16-2024 11:08-0400 SaO2% (BldA) [Mass fraction]97 %VOCATIONAL TEACHER Paola Daniel Work Phone: [phone] [place], [place] 3395405-16-2024 11:08-0400 Systolic blood nqlyrizl422 mm[Hg]VOCATIONAL TEACHER Paola Daniel Work Phone: [phone] [place], [place] 3395405-16-2024 09:23-0400 Body wkdeyg771.56 cmAPRN Paola Daniel Work Phone: [phone] [place], [place] 3395405-16-2024 09:23-0400 Body sgthalerqjs24.1 [degF]VOCATIONAL TEACHER Paola Daniel Work Phone: [phone] [place], [place] 3395405-16-2024 09:23-0400 Body ilwcwc74.71 kgAPRN Paola Daniel Work Phone: [phone] [place] [address] Encounters Encounter DateEncounter TypeCare ProviderFacilityStart: 02-15-2025 End: 11-08-8227Yxeumt flowsheetCorey Vesta DO Work Phone: [facility]YNStart: 02-15-2025 End: 80-81-9328Dzdqjm flowsheetCorey Vesta DO Work Phone: [facility]BGYNStart: 02-15-2025 End: 84-34-5284csqydfmylkFCKLJ FAZIONot AvailableStart: 02-15-2025 End: 43-19-6518Lwbamdk encounter procedureCorey Vesta DO Work Phone: no HealthcareStart: 02-15-2025 End: 34-99-8392Yndseuwz preventive med est patient 40-64yrsCorey Vesta DO Work Phone: noMS Derasue OBGYNComment on above:Well woman exam with routine gynecological exam; Pre-op examination; Menorrhagia with irregular cycle; Thickened endometrium; Postmenopausal state; Encounter for screening mammogram for malignant neoplasm of breastStart: 02-15-2025 End: 08-66-0418Qgisjltuihrhq examination doneCorey Vesta DO Work Phone: no HealthcareStart: 61-96-8470fvxymvpdnsXlpukqdyyaf AbdelazizFacility:[facility] Hospitaltart: 01-05-2025 End: 22-44-1369Kmqjdj flowsheetCorey Vesta DO Work Phone: [facility] OBGYNStart: 01-05-2025 End: 42-97-3413Horvih flowsheetCorey Vesta DO Work Phone: noMS [place] OBGYNStart: 01-05-2025 End: 89-89-4453Fhggym outpatient visit 15 minutesCorey Vesta DO Work Phone: noms [place] OBGYNComment on above:Menorrhagia with irregular cycle; Thickened endometrium; Irritation of scarStart: 01-05-2025 End: 47-00-8375cpjpbxmijiVELIJ FAZIONot AvailableStart: 16-52-2810ucrrwsgklwIaol A Daniel MACHINIST GENERAL-CFacility:[facility]ICStart: 16-47-4555nwxnjzdeyeWkoa A Daniel MACHINIST GENERAL-C Facility:[facility]ICStart: 99-82-7172iqgeozcifpZndv A Daniel MACHINIST GENERAL-CFacility:[facility]ICStart: 39-18-0258lfbghongpmDaro A Daniel MACHINIST GENERAL-CFacility:[facility] Start: 15-78-2329utxlnkhluuJfvk A Daniel MACHINIST GENERAL-CFacility:[facility]ICStart: 10-03-2023 End: 07-69-9870Dhwcwkeox to same day surgery centerAPRN Paola Daniel Work Phone: [phone]-[facility] Main CampusStart: 10-03-2023 End: 57-08-7187tuzzyagnguOJVI Paola A Daniel Work Phone: [phone] [place] [address] Ctr Work Phone: Start: 96-00-1926Xotlzszjju RecurringAPRN Paola Daniel Work Phone: [phone]-[facility]-BH CredibleStart: 09-05-2023 End: 32-22-4524Ygfmzjzzm to same day surgery centerAPRN Paola Daniel Work Phone: [phone]-[facility] Main CampusStart: 09-04-2023 End: 28-68-0193Cmqnqlme ReferredAPRN Paola Daniel Work Phone: [phone]-[facility]-G[facility]ce[facility] Testing Work Phone: Start: 02-13-2022 End: 29-67-9679hvnsbcoffdNFHI EBERTFacility:V6Qwfqu: 01-09-2022 End: 37-37-9109bukvdcmhtxVVPPUPGCIMS HASSETTFacility:O9Amoop: 07-25-2021 End: 89-23-7347Jhckcjl encounter procedureDO Heri Antonio Work Phone: [facility]-MRI Strub RdStart: 07-03-2021 End: 65-21-5280zjjsemxuixVYQGQXUJNKQ HASSETTFacility:V3Urlwt: 06-03-2021 End: 42-19-1064hcmksnmudlKU LORNA Russell SMITHFacility:X5Yghys: 03-30-2021 End: 65-44-9428bkusndxupgWH DOCTOR MISCFacility:H1 Procedures DateProcedureProcedure DetailPerforming ClinicianStart: 10-03-2023 Phacoemulsification of cataract with intraocular lens implantationAPRN Paola Daniel Work Phone: Start: 84-26-3061Qnhglnzijykmbzjzqbr of cataract with intraocular lens implantationAPRN Paola Daniel Work Phone: Plan of Treatment DateCare ActivityDetailAuthorStart: 02-15-2025 End: 39-04-3817LDU Skeletal system Views for bone densityDEXA bone density Imaging Routine Postmenopausal state Expected: 02/15/2025 (Approximate), Expires:02/15/2026NOWI HealthcareComment on above:Expected: 02/15/2025 (Approximate), Expires: 02/15/2026Start: 02-15-2025 End: 95-67-4973RD Breast - bilateral ScreeningBilateral screening mammogram Imaging Routine Encounter for screening mammogram for malignant neoplasm of breast Expected: 02/15/2025, Expires: 04/17/2026NOWI [facility] Work Phone: comment on above:Expected: 02/15/2025, Expires: 04/17/2026Start: 01-05-2025 End: 86-35-6573Avehaij encounter yjmiieziq38/16/2025 1:30 PM EDT Office Visit XIANG MONTILLA [address] [place] [id number] Renee Lemons DO [address] [place] [address] ArrivedNOMS [place] OBGYNComment on above:ArrivedStart: 35-24-9094VpncxxxnvMcKitrick Hospitaltart: 09-05-2023 [facility]: 91-37-6957EbbseervgSelect Medical Specialty Hospital - Columbus SouthPatient EducationKnow your [facility] Work Phone: [facility] referral[facility] Work Phone: THIN PREP TIS PAP AND HR HPV DNATHIN PREP TIS PAP AND HR HPV DNA Pathology and Cytology Routine Well woman exam with routine gynecol ogical exam Ordered: 02/15/2025NOMS HealthcareComment on above:Ordered: 02/15/2025 Payers DatePayer CategoryPayerPolicy [id number] [place] [id number]-ogh [id number] 2..1.572745.3.57[id number] 2..1.936327.3.57[id number] 2..1.118957.3.57[id number] 2..1.206348.3.57[id number] 2..1.990810.3.57[id number] 2..1.646594.3.579.2.350[id number] 2..1.951106.3.57[id number] 2..1.818795.3.579.2.[id number] 2..0.1.727572.3.579.2.84971-78-1442Klzeltw01361446 2..0.1.272839.3.579.2.03720-51-3575Vjvnnfm18993977 2..0.1.606738.3.579.2.[id number] 2..0.1.562200.3.579.2.[id number] 084xwl69-4420-259t-d28f-0x21w3531[id number] w9b1h3wf-261l-2qg3-12d0-[id number] 2..1.631101.3.579.2.531 Social History DateTypeDetailFacilgeorgetown behavioral hospitalTobacco smoking status NHISUnknown if ever smokedAultman Alliance Community Hospital Work Phone: Start: 59-12-9189Zko Assigned At BirthLancaster Municipal Hospitaltart: 35-93-0846Nzwdmxx smoking status NHISSmoker (finding)[facility] SouthTobacc smoking status NHISTobacco smoking consumption unknownUINTAH BASIN [facility] HealthcareStart: 08-47-1990Lhj assigned at Not on [facility] CenterGender identityNot on [facility] HealthcareStart: 15-15-4235PiuKhpjmxMKWR Healthcare Medical Equipment Procedure CodeEquipment CodeEquipment Original TextEquipment IdentifierDates Phacoemulsification of cataract with intraocular lens implantationPosterior- chamber intraocular lens, pseudophakic()[id number] FDAStart: 09-05-2023 Goals DatePatient GoalDesired Activity/State History of Present illness Narrative 02-15-2025 Note Date & EoewUnrrBhckrafo17-43-6073 History of Present illness Narrative* Alba Ferraro - 02/15/2025 1:20 PM EDT Reason for Appointment: Patient ID: Maricruz Daniels is a 55 y.o. female who presents for Pre-op Visit and Well Women Visit Patient presents today for Pre Op/Annual appointment. Patient is scheduled to undergo D&C Hysteroscopy, possible Myosure on 02/26/[address] Lemons at [facility]. MEDICATIONS Current Outpatient Medications Medication Instructions nystatin (Mycostatin) 121685 UNIT/GM powder Topical, 3 times daily ALLERGIES [...] nursing note reviewed. Exam conducted with a food safety auditor present. Vitals: There is no height or [...] reviewed, and patient is to proceed to [facility] OR. Follow Up: Patient is to follow up between 1-2 weeks post operative to assess proper healing and recovery fromprocedure. Documented by Katie Mojica LPN on behalf of: Renee Lemons DO documented in this encounterNOMS Healthcare History of Present illness Narrative 01-05-2025 Note Date & FwzoGtlnOjvargef24-03-7845 History of Present illness Narrative* Alexa Polk LPN - 01/05/2025 1:30 PM EDT Reason for Appointment: Patient ID: Maricruz Daniels is a 54 y.o. female who presents for Menorrhagia and endometrial thickening Patient presents today for Consult appointment. and Follow up appointment to discuss results. MEDICATIONS No current outpatient medications ALLERGIES Allergies Allergen Reactions Grass Pollen(K-O-R-T-Swt Reagan) Penicillins PROBLEMS Active Ambulatory Problems Diagnosis Date Noted No Active Ambulatory Problems Resolved Ambulatory Problems Diagnosis Date Noted No Resolved Ambulatory Problems No Additional Past Medical History HISTORY PAST MEDICAL HISTORY SOCIAL HISTORY History reviewed. No pertinent past medical history. Social History Tobacco Use Smoking status: Not on file Smokeless tobacco: Not on file Substance Use Topics Alcohol use: Not on file Drug use: Not on file FAMILY HISTORY No family history on file. SURGICAL HISTORY History reviewed. No pertinent surgical history. REVIEW OF SYSTEMS Review of Systems: Review of Systems Constitutional: Negative. HENT: Negative. Eyes: Negative. Respiratory: Negative. Cardiovascular: Negative. Gastrointestinal: Negative. Genitourinary: Negative. Musculoskeletal: Negative. Skin: Negative. Neurological: Negative. All other systems reviewed and are negative. Hematological: Negative. Endocrine: Negative. Allergic/Immunologic: Negative. OBJECTIVE Objective: Physical Exam Constitutional: Appearance: Normal appearance. She is well-developed. Cardiovascular: Rate and Rhythm: Normal rate and [...] nursing note reviewed. Exam conducted with a food safety auditor present. Vitals: There is no height or weight on file to calculate BMI. BP: No LMP recorded. ASSESSMENT & PLAN ICD-10-CM 1. Menorrhagia with irregular cycle N92.1 2. Thickened endometrium R93.89 Pt presents to discuss ultrasound results. Pt has always had bad cramping and heavier periods. Ultrasound showed thickened lining. Pt was bleeding for 3 weeks last month. Pt has raw area under section scar. Rx for nystatin powder faxed to pharmacy. Pt to be scheduled for D&C hysteroscopy with possible myosure. Documented by Alexa Polk LPN on behalf of: Renee Lemons DO documented in this encounterUINTAH BASIN MEDICAL CENTER Healthcare Consultation note 02-13-2022 Note Date & WhtaDbdfMuhwaerq55-09-2718 NoteCONSULTATION CONSULTATION DATE: 02/13/2022 CHIEF COMPLAINT: Low back pain 15+ years. HISTORY OF PRESENT ILLNESS: This is a very pleasant, 52-year-old female who was referred to us by Dr. Antonio. The patient's family physician is Paola Sanchez CNP. The patient has chronic low back pain. The patient works at [employer]. The patient rates the pain as a [...] the patient join an aquatic program. CC: Wendy Antonio D.O. Paola Sanchez, [facility] Evaluation note Note Date & TypeNoteFacilityEvaluation noteNo assessment information available [facility] Work Phone: Evaluation note Note Date & TypeNoteFacilityEvaluation note* Diagnosis Menorrhagia with irregular cycle Thickened endometrium Nonspecific (abnormal) findings on radiological and other examination of genitourinary organs Irritation of scar documented in this encounter [facility] Evaluation note Note Date & TypeNoteFacilityEvaluation note* Diagnosis Well woman exam with routine gynecological exam Routine gynecological examination Pre-op examination Menorrhagia with irregular cycle Thickened endometrium Nonspecific (abnormal) findings on radiological and other examination of genitourinary organs Postmenopausal state Asymptomatic postmenopausal status (age-related) (natural) Encounter for screening mammogram for malignant neoplasm of breast documented in this encounter [facility] Discharge instructions Note Date & TypeNoteFacilityHospital Discharge instructions Additional Instructions POST CATARACT SURGERY [...] for your ride home. Some people are light- sensitive for a few weeks following surgery. Wear [...] worsening of your eyesight. 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 If after business hours call Dr. Vlad Aguilar at his cell [phone] or his office [phone].[facility] Work Phone: Chief Complaint and Reason for Visit Chief Complaint r29.928 Chief Complaint Right Eye Cataract Right Eye Cataract BH Left Eye Cataract Advance Directives No Advanced Directives Records Found Advance Directive Response Recorded Date/ Time Advance Directives No July 13, 2 022 4:21pm Summary Purpose Family History No Family History Records Found Relationship Condition Age at Onset Recorded Date/T anu Not Specified Multiple myeloma Unknown Malignant neoplasm of breastUnknownDepressionUnknownAnxietyUnknownsister Malignant neoplasm of uterusUnknown Additional Source Comments Care Teams (unrecognized sec tion and content) Team Status: Inactive Member Role Status Dates Heri Antonio DO Attending Provider Active Paola Sanchez APRN MACHINIST GENERAL-CPrimary Care ProviderActive Team Status: Active Member Role Status Dates Paola Sanchez APRN MACHINIST GENERAL-C Primary Care Provider Active Team Status: Inactive Member Role Status Dates Paola Sanchez APRN MACHINIST GENERAL-C Primary Care Provider Active Start: September 04, 2023 End: September 04, 2023Michael Torres ProviderActiveStart: September 04, 2023 End: September 04, 2023 Team Status: Inactive Member Role Status Dates Paola Sanchez APRN MACHINIST GENERAL-C Primary Care Provider Active Start: September 05, 2023 End: September 05, 2023Michael Torres ProviderActiveStart: September 05, 2023 End: September 05, 2023 Team Status: Active Member Role Status Dates Paola Sanchez APRN MACHINIST GENERAL-C Primary Care Provider Active Start: September 11, 2023 Michael Sotelo ProviderActiveStart: September 11, 2023 Team Status: Inactive Member Role Status Dates Paola Sanchez APRN MACHINIST GENERAL-C Primary Care Provider Active Start: October 03, 2023 End: October 03, 2023Michael Torres ProviderActiveStart: October 03, 2023 End: October 03, 2023 Goals (unrecognized section and content) Goals may be documented in a n alternate section INFORMATION SOURCE (unrecogn ized section and content) DATE CREATED AUTHOR 02/18/2022 [facility] DATE CREATED AUTHOR AUTHOR'S ORGANIZ ATION 12/23/2024 [facility] DATE CREATED AUTHOR AUTHOR'S ORGANIZ ATION 02/09/2025 [facility] DATE CREATED AUTHOR AUTHOR'S ORGANIZ ATION 02/16/2025 [facility] EPIC Reason for Visit (unrecogniz ed section and content) ReasonCommentsMenorrhagiaendometrial thickeningReasonCommentsPre-op VisitWell Women Visit FOR RECORDS PERTAINING TO PATIENTS WHO ARE [...] BE BASED ON THE PRIMARY CLINICAL RECORDS. [facility]. provides no warranty or guarantee of the accuracy or completeness of information in this document.
== END 2025-02-17 12:31 | disposition home or self-care (01) ==
PROVIDERS: Visit Provider Obstetrics & Gynecology
DX: Z01.810 Encounter for preprocedural cardiovascular examination (principal); N92.1 Excessive and frequent menstruation with irregular cycle; R93.89 Abnormal findings on diagnostic imaging of other specified body structures
CPT/HCPCS: 93005

== ENCOUNTER 2025-02-26 07:51 | Day surgery (SDC) | payer MEDICAID, SELFPAY ==
--- OUTSIDE RECORDS SUMMARY | 2025-02-15 12:20 | XMS_ITS | Encounter Summary ---
Author Organization [facility] Address [address] [facility] [place] [address] Care Team Providers Care Dredge Mate Name Role Phone Unavailable Primary Care Provider Unavailabl e Reason for Visit * ReasonCommentsPre-op VisitWell Women Visit Encounter Details DateTypeDepartmentCare Team (Latest Contact Info)Wxysmevourx29/27/2025 1:20 PM EDTProcedure Visit [facility] [place] [facility] [address] [phone] Martin Lemons, [address] [place], [place] [id number] Well woman exam with routine gynecological exam; Pre-op examination; Menorrhagia with irregular cycle; Thickened endometrium; Postmenopausal state; Encounter for screening mammogram for malignant neoplasm of breast Social History Tobacco UseTypesPacks/DayYears UsedDateSmoking Tobacco: Never Assessed CommentsUnknownSex and Gender InformationValueDate RecordedSex Assigned at Not on fileLegal UeuKzsqmg13/03/2025 12:53 PM EDTGender IdentityNot on file Sexual OrientationNot on filedocumented as of this encounter Last Filed Vital Signs Vital SignReadingTime TakenCommentsBlood Wcszccis532/7202/15/2025 1:51 PM EDT Pulse--Temperature--Respiratory Rate--Oxygen Saturation--Inhaled Oxygen Concentration--Hqetxc83 kg (209 lb 8 oz)02/15/2025 1:51 PM EDTHeight--Body Mass Index--documented in this encounter Progress Notes * Alba Ferraro - 02/15/2025 1:20 PM EDT Reason for Appointment: Patient ID: Maricruz Daniels is a 55 y.o. female who presents for Pre-op Visit and [facility] Women Visit Patient presents today for Pre Op/Annual appointment. Patient is scheduled to undergo D&C Hysteroscopy, possible Myosure on 02/26/[address] Lemons at [facility]. MEDICATIONS Current Outpatient Medications Medication Instructions nystatin (Mycostatin) 292602 UNIT/GM powder Topical, 3 times daily ALLERGIES Allergies Allergen Reactions Grass Pollen(K-O-R-T-Swt Reagan) Penicillins PROBLEMS Active Ambulatory Problems Diagnosis Date Noted No Active Ambulatory Problems Resolved Ambulatory Problems Diagnosis Date Noted No Resolved Ambulatory Problems No Additional Past Medical History HISTORY PAST MEDICAL HISTORY SOCIAL HISTORY No past medical history on file. Social History Tobacco Use Smoking status: Not on file Smokeless tobacco: Not on file Substance Use Topics Alcohol use: Not on file Drug use: Not on file FAMILY HISTORY No family history on file. SURGICAL HISTORY No past surgical history on file. REVIEW OF SYSTEMS Review of Systems: Review of Systems Constitutional: Negative. HENT: Negative. Eyes: Negative. Respiratory: Negative. Cardiovascular: Negative. Gastrointestinal: Negative. Genitourinary: Positive for vaginal bleeding. Musculoskeletal: Negative. Skin: Negative. Neurological: Negative. All other systems reviewed and are negative. Hematological: Negative. Endocrine: Negative. Allergic/Immunologic: Negative. OBJECTIVE Objective: Physical Exam Constitutional: Appearance: Normal appearance. She is well-developed. Genitourinary: Vulva normal. Cardiovascular: Rate and Rhythm: Normal rate and regular rhythm. Pulmonary: Effort: Pulmonary effort is normal. Breath sounds: Normal breath sounds. Abdominal: General: Bowel sounds are normal. There is no distension. Palpations: Abdomen is soft. Tenderness: There is no abdominal tenderness. There is no guarding or rebound. Musculoskeletal: General: No swelling. Normal range of motion. Right lower leg: No edema. Left lower leg: No edema. Neurological: Mental Status: She is alert and oriented to person, place, and time. Skin: General: Skin is warm and dry. Psychiatric: Mood and Affect: Mood normal. Behavior: Behavior normal. Vitals and nursing note reviewed. Exam conducted with a head of marketing present. Vitals: There is no height or weight on file to calculate BMI. BP: No LMP recorded. ASSESSMENT & PLAN ICD-10-CM 1. Well woman exam with routine gynecological exam Z01.419 THIN PREP TIS PAP AND HR HPV DNA 2. Pre-op examination Z01.818 3. Menorrhagia with irregular cycle N92.1 4. Thickened endometrium R93.89 5. Postmenopausal state Z78.0 DEXA bone density 6. Encounter for screening mammogram for malignant neoplasm of breast Z12.31 Bilateral screening mammogram Bilateral screening mammogram Annual: Patient presents today for an annual exam. Patient states she is doing well and has no complaints. Pap was obtained without difficulty. Pre Op: Patient is doing well but has complaints of thickened endometrium found on ultrasound and menorrhagia. I have discussed conservative management vs. surgical management with the patient in detail and patient desires surgical management at this time. Patient will undergo D&C Hysteroscopy, possible Myosure on 02/26/2025. Surgical consents were signed, mmc was reviewed, and patient is to proceed to [facility] OR. Follow Up: Patient is to follow up between 1-2 weeks post operative to assess proper healing and recovery fromprocedure. Documented by Katie Mojica LPN on behalf of: Martin Lemons DO documented in this encounter Plan of Treatment NameTypePriorityAssociated DiagnosesOrder ScheduleBilateral screening mammogram ImagingRoutine Encounter for screening mammogram for malignant neoplasm of breast Expected: 02/15/2025, Expires: 04/17/2026DEXA bone densityImagingRoutine Postmenopausal state Expected: 02/15/2025 (Approximate), Expires: 02/15/2026THIN PREP TIS PAP AND HR HPV DNAPathology and CytologyRoutine Well woman exam with routine gynecological exam Ordered: 02/15/2025documented as of this encounter Visit Diagnoses Diagnosis Well woman exam with routine gynecological exam Routine gynecological examination Pre-op examination Menorrhagia with irregular cycle Thickened endometrium Nonspecific (abnormal) findings on radiological and other examination of genitourinary organs Postmenopausal state Asymptomatic postmenopausal status (age-related) (natural) Encounter for screening mammogram for malignant neoplasm of breast documented in this encounter
[2025-02-17 13:10] VITALS: BP 109/75; PULSE 74; TEMP 36.3; O2SAT 96; BMI 35.9
--- OUTSIDE RECORDS SUMMARY | 2025-02-26 07:55 | XMS_ITS | CCD ---
Author Organization [facility] Care Team Providers Care Web Site Administrator Name Role Phone DO Heri Antonio Attending Provider [phone] Daniel, BRICK HANDLER Paola William Primary Care Provider JOCELYNE, DR [...] Care Unavailable WENDY ANTONIO Attending Unavailable WENDY NATONIO Consulting Unavailable WENDY ANTONIO Admitting Unavailable WENDY ANTONIO Consulting Unavailable WENDY ANTONIO Attending Unavailable ERICKC, DR CROSS Primary Care Unavailable Daniel, BRICK HANDLER Paola William Primary Care Provider MD Vlad Agiular Attending Provider MD Prudencio Crain Attending Provider Daniel LAMINATING MACHINE TENDER-C, Paola A Primary Care Unavailable Daniel LAMINATING MACHINE TENDER-C, Paola A Attending Unavailable Daniel LAMINATING MACHINE TENDER-C, Paola A Primary Care Unavailable Daniel LAMINATING MACHINE TENDER-C, Paola A Attending Unavailable Daniel LAMINATING MACHINE TENDER-C, Paola A Primary Care Unavailable Daniel LAMINATING MACHINE TENDER-C, Paola A Attending Unavailable Daniel LAMINATING MACHINE TENDER-C, Paola A Primary Care Unavailable Daniel LAMINATING MACHINE TENDER-C, Paola A Attending Unavailable Daniel LAMINATING MACHINE TENDER-C, Paola A Primary Care Unavailable Daniel LAMINATING MACHINE TENDER-C, Paola A Attending Unavailable Unavailable Primary Care Provider UnavailPrudencio Dueñas Attending Unavailab Prudencio Luther Admitting Unavailab Paola Tineo Primary Care Unavailable RENEE LEMONS Attending Unavailable RENEE LEMONS Attending Unavailable Allergies Allergy ClassificationReported Allergen(s)Allergy TypeDate of OnsetReaction(s) Facility (1 source)AmoxicillinDrug Ztylkqk01-31-3959Rkp [facility] Repository (2 sources)Penicillin; Translations: [penicillin]Drug Wsffahg74-15-7286Bot [facility] Repository (8 sources)Penicillins; Translations: [Penicillins]Allergy to substance 89-60-7447UwrxjQeqjsqxhsKindred Hospital [facility] (1 source)Grass; Translations: [Grass]Propensity to adverse reactions to drug (disorder)[facility] Repository (6 sources)Grass pollenDrug Eiyogfl85-39-6845XYQN [facility] Medications Current Medications MedicationDrug Class(es)DatesSig (Normalized)Sig (Original)[id number] 200 actuat albuterol 0.09 mg/actuat metered dose inhaler (1 source)beta2-Adrenergic AgonistStart: 34-41-7686Jnhriloxx Sulfate Active 1 - 2 INH INHALATION EVERY 4-6 HOURS September 04, 2023 12:00amALPRAZolam 1 mg oral tablet (1 source)BenzodiazepineStart: 65-21-9862izjt 1 mg by mouth twice daily Alprazolam Active 1 MG PO Twice daily September 04, 2023 12:00ambusPIRone hydrochloride 15 mg oral tablet (1 source)Start: 02-45-6847sala 15 mg by mouth once daily at bedtimeBuspirone Active 15 MG PO Daily at bedtime September 04, 2023 12:00amcholecalciferol 0.025 mg oral capsule (1 source)Vitamin DStart: 23-64-9028vdys 25 ug by mouth once daily at bedtime Cholecalciferol (Vitamin D3) Active 25 MCG PO Daily at bedtime September 04, 2023 12:00ammelatonin 3 mg oral tablet (1 source)Start: 42-30-6378dnug 3-6 mg by mouth once daily at bedtimeMelatonin Active 3 - 6 MG PO Daily at bedtime September 04, 2023 12:00amMometasone-Formoterol (Dulera) 200-5 mcg/actuation HFA aerosol inhaler (1 source)Start: 07-88-8056Pzfdonbpov-Formoterol (Dulera) 200-5 mcg/actuation HFA aerosol inhaler Active 2 INH INHALATION Twice daily September 04, 2023 12:00am nystatin 100 unt/mg topical powder (6 sources)Polyene AntifungalStart: 01-05-2025 End: 39-87-9399jzumfqsn (Mycostatin) [id number] UNIT/GM powder Indications: Irritation of scar APPLY TOPICALLY IN THE MORNING AND IN THE EVENING AND BEFORE BEDTIME. 15 g 02/15/2025 02/15/2026 ActiveTiotropium [place] (Spiriva With Handihaler) 18 mcg capsule, w/inhalation device (1 source)Start: 85-61-9239hepk 1 capsule by inhalation once daily at bedtime Tiotropium [place] (Spiriva With Handihaler) 18 mcg capsule, w/inhalation device Active 1 CAP INHALATION Daily at bedtime September 04, 2023 12:00amvitamin b12 0.1 mg oral tablet (1 source)Vitamin G53Pvzfh: 49-44-4609yiaw 100 ug by mouth once daily at bedtime Cyanocobalamin (Vitamin B-12) Active 100 MCG PO Daily at bedtime September 04, 2023 12:00am Problems Active Problems Problem ClassificationProblemDateDocumented DateEpisodic/ChronicAsthma (4 sources)Unspecified asthma, uncomplicated; Translations: [UNSPECIFIED ASTHMA UNCOMPLICATED]Onset: 10-74-3527QisoclhIdtnrgu obstructive pulmonary disease and bronchiectasis (1 source)Chronic obstructive pulmonary disease, unspecified; Translations: [COPD UNSPECIFIED]Onset: 59-40-3341RrbgdcwYlwwyrpdl disorders (3 sources)Menometrorrhagia; Translations: [Excessive and frequent menstruation with irregular cycle]20-87-5551CtzozhgXguaghdqmfz deficiencies (1 source)Vitamin D deficiency, unspecified; Translations: [VITAMIN D DEFICIENCY UNSPECIFIED]Onset: 19-38-8165DbojlulNvnri connective tissue disease (4 sources)Other symptoms and signs involving the musculoskeletal system; Translations: [OTH SX AND SYMP INVOLV MUSCULOSKELTAL]Onset: 10-18-9340Ypcreeus Other nervous system disorders (1 source)Polyneuropathy, unspecified; Translations: [POLYNEUROPATHY UNSPECIFIED]Onset: 43-17-9290WnostuiDhsrj screening for suspected conditions (not mental disorders or infectious disease) (3 sources)Endometrium thickened; Translations: [Abnormal findings on diagnostic imaging of other specified body structures]04-03-7045TguakqaQalmh screening for suspected conditions (not mental disorders or infectious disease) (3 sources)Encounter for screening for diabetes mellitus; Translations: [Encounter for screening for lipoid disorders]Onset: EpisodicOther skin disorders (2 sources)Skin irritation ; Translations: [Scar conditions and fibrosis of skin]78-45-8756NaukbqhdKshknmsa codes; unclassified (1 source)Postmenopausal state; Translations: [Asymptomatic menopausal state] 23-94-9565GahnlgwiVspbvunerlq; intervertebral disc disorders; other back problems (1 source)Other intervertebral disc degeneration, lumbosacral region; Translations: [OTH IV DISC DEGEN LUMBOSACRAL RGN]Onset: 04-70-8078Fxqzhyf Spondylosis; intervertebral disc disorders; other back problems (2 sources)Intervertebral disc disorders with radiculopathy, lumbar region; Translations: [Spinal stenosis, lumbar region without neurogenic claudication] Onset: 17-22-4029XohgnueaGtxtebzomqxu (3 sources)LOW BACK PAIN, UNSPECIFIED; Translations: [LOW BACK PAIN, UNSPECIFIED]Onset: 02-18-2022 Past or Other Problems Problem ClassificationProblemDateDocumented DateEpisodic/ChronicOther aftercare (1 source)Other terminal makeup operator (current) drug therapy; Translations: [OTH SENIOR LIVING CURRENT DRUG THERAPY]Onset: 01-52-7863YdtxqakhYnbml skin disorders (4 sources)Rash and other nonspecific skin eruption; Translations: [RASH OTH NONSPECIFIC SKIN ERUPTION]Onset: 07-37-0803MqxmpixxStgx and subcutaneous tissue infections (1 source)Local infection of the skin and subcutaneous tissue, unspecified; Translations: [LOCAL INFECT SKIN SUBQ TISSUE UNS]Onset: 69-68-6283Swvntpdz Unclassified (1 source)LOW BACK PAIN, UNSPECIFIED; Translations: [LOW BACK PAIN, UNSPECIFIED] Onset: 02-13-2022 Results Test NameValueInterpretationReference RangeFacilityIGP,APTIMA HPV,AGE GDLNon 26-55-0024GMY GDLN ACOG TESTINGNote.NOMS HealthcareComment on above:TESTS RESULT FLAG UNITS REF RANGE LAB Clinician Provided Cytology Information Source.............Cervix;Endocervix No. of containers..01 ThinPrep Vial Age Algo ACOG Emily... FLAG LEGEND: L-Low Normal,H-High Normal,LL-Alert Low,HH-Alert High <-Panic Low,>-Panic High,A-Abnormal,AA-Critical Abnormal Performed at: 01 =[address] [address] Yelitza Rhodes MD, HPV APTIMANegativeNegativeNOMS HealthcareComment on above:This nucleic acid amplification test detects fourteen high- risk HPV types (16,18,31,33,35,39,45,51,52,56,58,59,66,68) without differentiation. Performed at: =[address] [id number] Paste Mixer Liquid: Yelitza Rhodes MD, Phone: [phone] Performed at: [address] [id number] Paste Mixer Liquid: Yelitza Rhodes MD, Phone: [phone] IGP, APTIMA HPV, RFX 16/18,45Note.NOMS HealthcareComment on above:TESTS RESULT FLAG UNITS REF RANGE LAB DIAGNOSIS: 02 NEGATIVE FOR INTRAEPITHELIAL LESION OR MALIGNANCY. Specimen adequacy: 02 Satisfactory for evaluation. No endocervical component is identified. Performed by: 02 Radha Zamora, Gang Mower Operator (ASC) . 02 Note: Note 02 The Pap smear is a screening test designed to aid in the detection of premalignant and malignant conditions of the uterine cervix. It is not a diagnostic procedure and should not be used as the sole means of detecting cervical cancer. Both false-positive and false-negative reports do occur. Test Methodology: Note 02 This liquid based ThinPrep(R) pap test was interpreted using the [employer](R) Vontu(TM) Cervical Algorithm whole slide imaging system. HPV Genotype Reflex Note 02 Criteria not met, HPV Genotype not performed. FLAG LEGEND: L-Low Normal,H-High Normal,LL-Alert Low,HH-Alert High <-Panic Low,>-Panic High,A-Abnormal,AA-Critical Abnormal Performed at: [address] [facility] [address] [address] Yelitza Rhodes MD, SPATULA-ALONE CERVIX ENDOCERVIX CLINISYNCNOMS [address] [phone] [address] Electrocardiograph Report Signed Patient: MARICRUZ DANIELS MR#: [id number] : 1970 Acct:[id number] Age/Sex: 55 / F ADM Date: 02/17/25 Loc: PST Attending Dr: Renee Lemons D.O. Ordering Physician: Renee Lemons D.O. Date of Service: 02/17/25 Procedure(s): ECG 12 lead Accession Number(s): [id number] cc: [facility] Test Date: 2025-02-17 Pat Name: MARICRUZ DANIELS Department: Room: - Gender: Female Marketing Executive: : 1970 Requested By: RENEE LEMONS Order Number: [id number] Reading MD: DIONI MORE Measurements Intervals Mobile Rate: 71 P: 74 DC: 177 QRS: 37 QRSD: 81 T: 71 QT: 381 QTc: 415 Interpretive Statements SINUS RHYTHM NONSPECIFIC T-WAVE ABNORMALITY Compared to ECG 03/14/2018 10:09:42 T-wave abnormality now present ST (T wave) deviation no longer present Electronically Signed On 02-17-2025 18:40:12 EDT by DIONI MORE Dictated By: Dioni More M.D. Signed By: 02/17/25 1840 DD/ 1110 TD/TT: Space Systems Operations Craftsman:TBHRadiology, Radiologist, - 02/17/2025 [facility] [place] [id number] Electrocardiograph Report Signed Patient: MARICRUZ DANIELS MR#: [id number] : 1970 Acct:[id number] Age/Sex: 55 / F ADM Date: 02/17/25 Loc: PST Attending Dr: Renee Lemons D.O. Ordering Physician: Renee Lemons D.O. Date of Service: 02/17/25 Procedure(s): ECG 12 lead Accession Number(s): [id number] cc: [facility] Test Date: 2025-02-17 Pat Name: MARICRUZ DANIELS Department: Room: - Gender: Female Marketing Executive: : 1970 Requested By: RENEE LEMONS Order Number: [id number] Reading MD: DIONI MORE Measurements Intervals Mobile Rate: 71 P: 74 DC: 177 QRS: 37 QRSD: 81 T: 71 QT: 381 QTc: 415 Interpretive Statements SINUS RHYTHM NONSPECIFIC T-WAVE ABNORMALITY Compared to ECG 03/14/2018 10:09:42 T-wave abnormality now present ST (T wave) deviation no longer present Electronically Signed On 02-17-2025 18:40:12 EDT by DIONI MORE Dictated By: Dioni More M.D. Signed By: 02/17/25 1840 DD/ 1110 TD/TT: Space Systems Operations Craftsman: XIANG HealthcareRadiology Study observation (narrative)[facility] 12-LEAD Ordered By: Radiologist Radiology on 32-90-1472[employer] Work Phone: Outside Recordson 13-82-3162Phjgxnq Records [id number]#1.00[facility] Patient Letteron 63-67-0130Pscrrqu Letter [id number]#1.00[facility] Outside Recordson 19-51-5739Onpqqxx RecordsPt was a no show for her appointment and has not rescheduled [Electronically Signed on: 06/02/2024 08:19 EST] Carey De La Rosa [Verified on: 06/02/2024 08:19 EST] [facility] De [facility] RosaMedina HospitalHC ( test) IA.rapid Ql (U)Ordered By: Kashif Perez on 41-15-4041WIE ( test) Ql (U)[facility] HospitalHCG ( test) IA.rapid Ql (U)Ordered By: Pelon Stahl on 89-61-4482YFM ( test) Ql (U)NegativeMetrohealth Parma Medical CenterMRI [place] WO CONon 70-17-2279YQA [facility] WO CONEXAMINATION: MRI [place] WO CON HISTORY: Musculoskeletal symptom ; bilateral [...] Electronically authenticated by: MAHOGANY THURMAN Date: 2022-01-09 17:20[facility] AUTO DIFFon 02-56-8447VOZA #0.1 103/ulNormal0.0-0.1The [facility] CenterComment on above:Performed By: #### CBC #### [facility] [address] [address] [address] Kacy Lucasphils/100 WBC (Bld)0.6 %Normal0.2-2.0[facility] Comment on above:Performed By: #### CBC #### [facility] [address] [address] [address] Kacy Haque #0.3 103/ulNormal0.0-0.7The [facility] CenterComment on above: Performed By: #### CBC #### [facility] [address] [place] [address] Dr. Kacy Cobososinophils/100 WBC (Bld)3.4 %Normal0.9-7.0[facility] Comment on above:Performed By: #### CBC #### [facility] [address] [place] [address] Dr. Kacy Cobosrythrocyte distribution width (RBC) [Ratio]14.1 %Gojthf60.0-15.0 The [facility] CenterComment on above:Performed By: #### CBC #### [facility] [address] [place] [address] Dr. Kacy ManeHematocrit (Bld) [Volume fraction]39.1 %Djrgis54.0-48.0The [facility] CenterComment on above:Performed By: #### CBC #### [facility] [address] [place] [address] Dr. Kacy ManeHemoglobin (Bld) [Mass/Vol]12.7 g/iTRhtlzo32.0-16.0The [facility] CenterComment on above:Performed By: #### CBC #### [facility] [address] [place] [address] Dr. Kacy Pollard #0.03 10e3/ulNormal0.00-0.03The [facility] CenterComment on above:Performed By: #### CBC #### [facility] [address] [place] [address] Dr. Kacy Pollard %0.4 %Normal0.0-0.5The [facility] CenterComment on above: Performed By: #### CBC #### [facility] [address] [place] [address] Dr. Kacy RosaMPH #2.3 103/ulNormal1.2-3.8The [facility] CenterComment on above:Performed By: #### CBC #### [facility] [address] [place] [address] Dr. Kacy Rosamphocytes/100 WBC (Bld)27.3 %Mbpeez15.5-60.0The [facility] Hospitalment on above:Performed By: #### CBC #### [facility] [address] [place] [address] Dr. Kacy Bojorquez DIFF REQNONormalThe [facility] CenterComment on above: Performed By: #### CBC #### [facility] [address] [place] [address] Dr. Kacy Carlisle (RBC) [Entitic mass]32.1 dvYjmqin90.7-34.0The [facility] CenterComment on above:Performed By: #### CBC #### [facility] [address] [place] [address] Dr. Kacy Carlisle (RBC) [Mass/Vol]32.5 g/kJEcadfj93.9-35.2The [facility] CenterComment on above:Performed By: #### CBC #### [facility] [address] [place] [address] Dr. Kacy Carlisle (RBC) [Entitic vol]98.7 qRHdokna05.0-99.0The [facility] CenterComment on above:Performed By: #### CBC #### [facility] [address] [place] [address] Dr. Kacy Robles #0.7 103/ulNormal0.3-0.8The [facility] CenterComment on above:Performed By: #### CBC #### [facility] [address] [place] [address] Dr. Kacy Mccoyocytes/100 WBC (Bld)8.1 %Normal1.7-12.0[facility] Comment on above:Performed By: #### CBC #### [facility] [address] [place] [address] Dr. Kacy Sanches #5.0 103/ulNormal1.4-6.5The [facility] HospitalComment on above:Performed By: #### CBC #### [facility] [address] [address] [address] Kacy Straussutrophils/100 WBC (Bld)60.2 %Wbvgxw47.0-75.0The [facility]Com[facility] on above:Performed By: #### CBC #### [facility] [address] [address] [address] Kacy ManePlatelet mean volume (Bld) [Entitic vol]9.2 fLCritically low 9.5-13.5The [facility] CenterComment on above:Performed By: #### CBC #### [facility] [address] [place] [address] Dr. Kacy ManePLT276 103/ipZfaszx949-125Qus [facility]Com[facility] on above: Performed By: #### CBC #### [facility] [address] [place] [address] Dr. Kacy ManeRBC3.96 106/ulCritically low4.20-5.40The [facility] CenterComment on above:Performed By: #### CBC #### [facility] [address] [place] [address] Dr. Kacy ManeWBC8.3 103/ulNormal4.0-11.0The [facility] CenterComment on above: Performed By: #### CBC #### [facility] [address] [place] [address] Dr. Kacy ManeLIPID PROFILEon 09-51-7968YLRF-HDL RATIO NORMSEE [facility] Centere [facility] CenterComment on above:Result Comment: 3.3 - 4.4 LOW RISK 4.4 - 7.1 AVERAGE RISK 7.1 - 11.0 MODERATE RISK >11.0 HIGH RISKPerformed By: #### LIPID, TSH, CMP #### [facility] [address] [place] [address] Dr. Kacy ManeCholesterol [Mass/Vol]153 mg/dLNormal<=200The [facility] Comment on above:Performed By: #### LIPID, TSH, CMP #### [facility] [address] [address] [address] Kacy ManeCholesterol in HDL [Mass/Vol]41 mg/dLSt. Anthony's Hospital Comment on above:Performed By: #### LIPID, TSH, CMP #### [facility] [address] [address] [address] Kacy ManeCholesterol in LDL [Mass/Vol]98.4 mg/dLSt. Anthony's HospitalComment on above:Performed By: #### LIPID, TSH, CMP #### [facility] [address] [address] [address] Kacy Jettesterdiallo.total/Cholesterol in HDL [Mass ratio]3.7 {ratio} NormalOhiohealth Shelby HospitalComment on above:Performed By: #### LIPID, TSH, CMP #### [facility] [address] [address] [address] Kacy Encinas NORMAL> or = 60 mg/dl - LOW CARDIOVASCULAR RISK <40 mg/dl - HIGH CARDIOVASCULAR RISKNoSt. Rita's HospitalComment on above:Performed By: #### LIPID, TSH, CMP #### [facility] [address] [address] [address] Kacy Friedman CALC NORMALSEE BELOWSt. Anthony's HospitalComment on above:Result Comment: <100 mg/dl OPTIMAL 100 - 129 mg/dl NEAR OR ABOVE OPTIMAL 130 - 159 mg/dl BORDERLINE HIGH 160 - 189 mg/dl HIGH >190 mg/dl VERY HIGH Performed By: #### LIPID, TSH, CMP #### [facility] [address] [address] [address] Kacy ManeTriglyceride [Mass/Vol]68 mg/dLNormal<=150[facility] Comment on above:Performed By: #### LIPID, TSH, CMP #### [facility] [address] [address] [address] Kacy ManeVLDL CALC13.6 mg/dLNoSt. Rita's HospitalComment on above: Performed By: #### LIPID, TSH, CMP #### [facility] [address] [address] [address] Kacy Schultz 14(COMP METB)on 70-23-8578Glfkuqn [Mass/Vol]3.1 g/dL Critically low3.5-5.0The [facility] CenterComment on above:Performed By: #### LIPID, TSH, CMP #### [facility] [address] [address] [address] Kacy ManeAlbumin/Globulin [Mass ratio]0.8 {ratio}NormalThe [facility] CenterComment on above:Performed By: #### LIPID, TSH, CMP #### [facility] [address] [address] [address] Kacy Saunders [Catalytic activity/Vol]89 U/NNfxjhg44-026Bea Western Reserve Hospitalment on above:Performed By: #### LIPID, TSH, CMP #### [facility] [address] [address] [address] Kacy Glez [Catalytic activity/Vol]26 U/LNormal9-52The [facility] Comment on above:Performed By: #### LIPID, TSH, CMP #### [facility] [address] [address] [address] Kacy Fonseca gap [Moles/Vol]11.3 mmol/LNormalThe [facility] Comment on above:Performed By: #### LIPID, TSH, CMP #### [facility] [address] [address] [address] Kacy ManeAST [Catalytic activity/Vol]16 U/IQzvfpj29-05Xwr [facility] Hospitalment on above:Performed By: #### LIPID, TSH, CMP #### [facility] [address] [address] [address] Kacy ManeBilirubin [Mass/Vol]0.3 mg/dLNormal0.2-1.3The [facility] Comment on above:Performed By: #### LIPID, TSH, CMP #### [facility] [address] [address] [address] Kacy ManeCalcium [Mass/Vol]8.7 mg/dLNormal8.4-10.2[facility] Comment on above:Performed By: #### LIPID, TSH, CMP #### [facility] [address] [address] [address] Kacy ManeChloride [Moles/Vol]103 mmol/WYmwjui56-971Ojt [facility] Comment on above:Performed By: #### LIPID, TSH, CMP #### [facility] [address] [place] [address] Dr. Kacy ManeCO2 [Moles/Vol]27.0 mmol/QXkljig20.0-30.0The [facility] Comment on above:Performed By: #### LIPID, TSH, CMP #### [facility] [address] [place] [address] Dr. Kacy ManeCreatinine [Mass/Vol]1.23 mg/dLCritically high0.52-1.04[facility] HospitalComment on above:Performed By: #### LIPID, TSH, CMP #### [facility] [address] [place] [address] Dr. Kacy CobosGFR-AF DOYVURUC43 mL/min/1.92a4Cvxmtxwccw low>=60The [facility] CenterComment on above:Performed By: #### LIPID, TSH, CMP #### [facility] [address] [place] [address] Dr. Kacy Gomez-NON AF IGMHDVOQ78 mL/min/1.50l5Bbfmutueja low>=60The [facility] CenterComment on above:Performed By: #### LIPID, TSH, CMP #### [facility] [address] [place] [address] Dr. Kacy ManeGlobulin (S) [Mass/Vol]3.8 g/dLNormalThe [facility] CenterComment on above:Performed By: #### LIPID, TSH, CMP #### [facility] [address] [place] [address] Dr. Kacy ManeGlucose [Mass/Vol]98 mg/lDSetkfk96-042FhfOhiohealth Shelby Hospital Comment on above:Performed By: #### LIPID, TSH, CMP #### [facility] [address] [place] [address] Dr. Kacy ManePotassium [Moles/Vol]4.3 mmol/LNormal3.4-5.0[facility] Comment on above:Performed By: #### LIPID, TSH, CMP #### [facility] [address] [place] [address] Dr. Kacy ManeProtein [Mass/Vol]6.9 g/dLNormal6.1-8.2[facility] Comment on above:Performed By: #### LIPID, TSH, CMP #### [facility] [address] [address] [address] Kacy ManeSodium [Moles/Vol]137 mmol/ZXfqvhx516-822SqpOhiohealth Shelby Hospital Comment on above:Performed By: #### LIPID, TSH, CMP #### [facility] [address] [place] [address] Dr. Kacy ManeUrea nitrogen [Mass/Vol]19.0 mg/dLCritically high7.0-17.0[facility] HospitalComment on above:Performed By: #### LIPID, TSH, CMP #### [facility] [address] [place] [address] Dr. Kacy Noland nitrogen/Creatinine [Mass ratio]15.4 mg/mgNoSt. Rita's HospitalComment on above:Performed By: #### LIPID, TSH, CMP #### [facility] [address] [place] [address] Dr. Kacy Fry 41-16-0035LVL6.221 uIU/mLNormal0.470-4.680The [facility] CenterComment on above:Performed By: #### LIPID, TSH, CMP #### [facility] [address] [place] [address] Dr. Kacy DHILLON BELOWSt. Anthony's HospitalComment on above: Result Comment: <0.34 UIU/ml HYPERTHYROID 0.34-5.60 UIU/ml EUTHYROID >5.60 UIU/ml HYPOTHYROIDPerformed By: #### LIPID, TSH, CMP #### [facility] [address] [place] [address] Dr. Kacy Jefferson B12on 80-41-9286Wuknmffmx (Vitamin B12) [Mass/Vol]715.0 pg/eGUerxef850.0-931.0[facility] HospitalComment on above:Performed By: #### VITB12, VITAD #### [facility] Laboratory [address] [place] [address] Dr. Kacy ManeVITAMIN D 25 OHon 65-26-4149HAN D 25-OH57.1 ng/mLNormalThe [facility] Medical CenterComment on above:Performed By: #### VITB12, VITAD #### [facility] [address] [address] [address] Kacy Lee [facility] HospitalComment on above: Result Comment: <20 ng/mL Vit D deficient 20 - <30 ng/mL Vit D insufficient 30 - 100 ng/mL Vit D sufficient >100 ng/mL Potential ToxicityPerformed By: #### VITB12, VITAD #### [facility] [address] [address] [address] Kacy Mane Vital Signs Date TimeVital SignValuePerforming JyktpjphfYxlevbbh06-71-5038 13:51-0400Body lheimo46.03 kgCorey Vesta DO Work Phone: [facility] HospitalKxsrcojqgd79-01-9695 13:51-0400Diastolic blood mm[Hg]Renee Vesta DO Work Phone: [facility] HospitalEmrzokovjr18-44-4812 13:51-0400Systolic blood rzzgjhor901 mm[Hg]Renee Vesta DO Work Phone: [facility] HospitalDlrutipequ71-61-8627 10:55-0400Diastolic blood aysckove48 mm[Hg]BRICK HANDLER Paola Daniel Work Phone: [facility]06-13-2024 10:55-0400 Heart rate72 /minAPRN Paola Daniel Work Phone: [facility]06-13-2024 10:55-0400 Respiratory rate16 /minAPRN Paola Daniel Work Phone: 1(419)[address] [place], [place] 6055006-13-2024 10:55-0400 SaO2% (BldA) [Mass fraction]93 %BRICK HANDLER Paola Daniel Work Phone: 1419)[address] [place], [place] 6055006-13-2024 10:55-0400 Systolic blood vrjjaoac694 mm[Hg]BRICK HANDLER Paola Daniel Work Phone: 1419)[address] [place], [place] 6055006-13-2024 09:17-0400 Body doggrg740.56 cmAPRN Paola Daniel Work Phone: 1419)[address] [place], [place] 6055006-13-2024 09:17-0400 Body bbjqwonreld26 [degF]BRICK HANDLER Paola Daniel Work Phone: 1419)[address] [place], [place] 6055006-13-2024 09:17-0400 Body trvbbo234.69 kgAPRN Paola Daniel Work Phone: 1419)[address] [place], [place] 6055005-16-2024 11:08-0400 Diastolic blood wapoflpz39 mm[Hg]BRICK HANDLER Paola Daniel Work Phone: 1419)[address] [place], [place] 6055005-16-2024 11:08-0400 Heart rate79 /minAPRN Paola Daniel Work Phone: 1419)[address] [place], [place] 605[address]5-16-2024 11:08-0400 Respiratory rate16 /minAPRN Paola Daniel Work Phone: 1(993)[address] [place], [place] 6055005-16-2024 11:08-0400 SaO2% (BldA) [Mass fraction]97 %BRICK HANDLER Paola Daniel Work Phone: 1419)[address] [place], [place] 605[address]5-16-2024 11:08-0400 Systolic blood tfkagdtq954 mm[Hg]BRICK HANDLER Paola Daniel Work Phone: 1419)[address] [place], [place] 605[address]5-16-2024 09:23-0400 Body yueuem622.56 cmAPRN Paola Daniel Work Phone: 1419)[address] [place], [place] 605[address]5-16-2024 09:23-0400 Body .1 [degF]BRICK HANDLER Paola Daniel Work Phone: [facility]05-16-2024 09:23-0400 Body xlafoh57.71 kgAPRN Paola Sanchez Work Phone: [facility] Encounters Encounter DateEncounter TypeCare ProviderFacilityStart: 02-17-2025 End: 61-07-5565Wweanmkix Result EncounterCorey Vesta DO Work Phone: n[facility] External Department UnsolicitedStart: 02-17-2025 End: 59-07-5913Yiwoasxwd Result EncounterCorey Vesta DO Work Phone: n[facility] External Department UnsolicitedStart: 02-15-2025 End: 23-37-1510Igwwyv flowsheetCorey Vesta DO Work Phone: [facility] OBGYNStart: 02-15-2025 End: 19-84-2395Fmdzot flowsheetCorey Vesta DO Work Phone: [facility] OBGYNStart: 02-15-2025 End: 56-62-2541Whebfiduf Result EncounterCorey Vesta DO Work Phone: n[facility] External Department UnsolicitedStart: 02-15-2025 End: 90-13-6707trwfxbxziaNMZQX FAZIONot AvailableStart: 02-15-2025 End: 30-06-6619Loectpo encounter procedureCorey Vesta DO Work Phone: noms HealthcareStart: 02-15-2025 End: 92-76-9972Grflejzz preventive med est patient 40-64yrsCorey Vesta DO Work Phone: [facility] OBGYNComment on above:Well woman exam with routine gynecological exam; Pre-op examination; Menorrhagia with irregular cycle; Thickened endometrium; Postmenopausal state; Encounter for screening mammogram for malignant neoplasm of breastStart: 02-15-2025 End: 10-11-4458Qhgabxaoxwadi examination doneCorey Vesta DO Work Phone: NO HealthcareStart: 56-41-3000zhpxmfqwwaExewwnyjyso AbdelazizFacility:[facility] Hospitaltart: 01-05-2025 End: 91-68-7762Gfzabz flowsheetCorey Vesta DO Work Phone: NO [facility]BGYNStart: 01-05-2025 End: 03-85-9431Lwkxes flowsheetCorey Vesta DO Work Phone: [facility]BGYNStart: 01-05-2025 End: 33-42-7382Rxiugk outpatient visit 15 minutesCorey Vesta DO Work Phone: [facility] Derasue OBGYNComment on above:Menorrhagia with irregular cycle; Thickened endometrium; Irritation of scarStart: 01-05-2025 End: 28-47-2469uxxznvdyfzKGSNJ FAZIONot AvailableStart: 47-52-9573zkkyjskzneOtdj A Daniel LAMINATING MACHINE TENDER-CFacility:[facility] CLINICStart: 86-12-9014qgeqlxblwoEwfq A Daniel LAMINATING MACHINE TENDER-C Facility:[facility] CLINICStart: 50-58-8400uprhpkrqqxAlhu A Daniel LAMINATING MACHINE TENDER-CFacility:[facility]ICStart: 84-61-1559mlxyakzrpyTzrg A Daniel LAMINATING MACHINE TENDER-CFacility:[facility] Start: 43-05-9305eaqzxiqwmmFhpf A Daniel LAMINATING MACHINE TENDER-CFacility:[facility] CLINICStart: 10-03-2023 End: 72-35-3446Puocnyzwo to same day surgery centerAPRDoreen Paola Daniel Work Phone: [facility] CampusStart: 10-03-2023 End: 43-06-8622ygdtkyordsPGGY Paola A Daniel Work Phone: [facility] Work Phone: Start: 36-59-9181Gzzxqmyodp RecurringAPRN Paola Daniel Work Phone: [facility]- CredibleStart: 09-05-2023 End: 04-19-3830Htfthship to same day surgery centerDANIEL Sanchez Work Phone: [facility]-Surgery Center Main ErieStart: 09-04-2023 End: 66-81-9396Rntlifgf ReferredAPRDoreen Guevara Daniel Work Phone: [facility]-Pre-Surgical Testing Work Phone: Start: 02-13-2022 End: 88-79-9326hpzcbblcoxHSCY EBERTFacility:O7Dbsgq: 01-09-2022 End: 47-77-1126agcgdzlshoXBYXGJZVIZW HASSETTFacility:I3Hmtjf: 07-25-2021 End: 05-80-2853Ppcukwf encounter procedureDO Heri Paco Work Phone: [facility]-MRI Strub RdStart: 07-03-2021 End: 14-58-0998omxwcbsjdgYYYFNELLYMS HASSETTFacility:X3Luazg: 06-03-2021 End: 26-55-2782wbnwpgcqtdNX LORNA Russell SMITHFacility:A6Pmhdf: 03-30-2021 End: 99-89-0275wsqsnmlsphVJ DOCTOR MISCFacility:H1 Procedures DateProcedureProcedure DetailPerforming ClinicianStart: 99-51-9974XNN 12-LEAD Renee Vesta DO Work Phone: Start: 43-10-8389JKT,APTIMA HPV,AGE GDLNCorey Vesta DO Work Phone: Start: 76-94-0639Nwgdaezjmtbyvhyvscp of cataract with intraocular lens implantationAPRDoreen Paola Daniel Work Phone: Start: 64-39-6809Kutviefyzqdelhjdolv of cataract with intraocular lens implantationAPRN Paola Daniel Work Phone: Plan of Treatment DateCare ActivityDetailAuthorStart: 02-15-2025 End: 48-44-9183MYX Skeletal system Views for bone densityDEXA bone density Imaging Routine Postmenopausal state Expected: 02/15/2025 (Approximate), Expires:02/15/2026N[facility] HealthcareComment on above:Expected: 02/15/2025 (Approximate), Expires: 02/15/2026Start: 02-15-2025 End: 44-26-8285XW Breast - bilateral ScreeningBilateral screening mammogram Imaging Routine Encounter for screening mammogram for malignant neoplasm of breast Expected: 02/15/2025, Expires: 04/17/2026[facility] Work Phone: comment on above:Expected: 02/15/2025, Expires: 04/17/2026Start: 01-05-2025 End: 38-82-5571Klfmfob encounter /16/2025 1:30 PM EDT Office Visit [facility] [address] [place] [address] Renee Lemons DO [address] [place] [address] ArrivedNOMS [facility]ates OBGYNComment on above:ArrivedStart: 34-11-4247PszvbkqdfBluffton Hospitaltart: 09-05-2023 [facility] Hospitaltart: 55-47-3592WfuhjwxwzMetrohealth Parma Medical CenterPatient EducationKnow your [facility] Work Phone: [facility]University [facility] Work Phone: THIN PREP TIS PAP AND HR HPV DNATHIN PREP TIS PAP AND HR HPV DNA Pathology and Cytology Routine Well woman exam with routine gynecol ogical exam Ordered: 02/15/2025NONC HealthcareComment on above:Ordered: 02/15/2025 Payers DatePayer CategoryPayerPolicy [id number] BCBS MEDICAID [place] [id number]-auk [id number] 2.0.1.478544.3.57[id number] 2.0.1.144680.3.57[id number] 2.0.1.752534.3.57[id number] 2.0.1.950339.3.57[id number] 2.0.1.845280.3.579.2.96783-51-7954Widrswf06002499 2.840.1.226036.3.579.[id number] 2.0.1.064035.3.57[id number] 2.0.1.397395.3.57[id number] 2.0.1.556965.3.57[id number] 2.840.1.305013.3.57[id number] 2.840.1.555458.3.57[id number] 2..840.1.763221.3.579.2.97048[id number] 432yto70-5719-832n-f90n-5t31c4[id number] f4r7i2zm-265r-1xr4-69y3-[id number] 2.16.840.1.112824.3.579.2.531 Social History DateTypeDetailFaciltrinity health system west campusTobaalliancehealth madill – mad[facility] smoking status NHISUnknown if ever smokedWyandot Memorial Hospital Work Phone: Start: 79-34-2795Ggv Assigned At BirthAshtabula County Medical Centertart: 42-54-7793Oumjtzf smoking status NHISSmoker (finding)[facility] CenterTobaalliancehealth [facility]ill – mad[facility] smoking status NHISTobacco smoking consumption unknownLAKEVIEW HOSPITAL HealthcareStart: 28-57-5004Aks assigned at Not on [facility] HospitalGender identityNot on [facility] HospitalStart: 22-32-8407GtdFmfpxnJCQR Healthcare Medical Equipment Procedure CodeEquipment CodeEquipment Original TextEquipment IdentifierDates Phacoemulsification of cataract with intraocular lens implantationPosterior- chamber intraocular lens, pseudophakic([id number] FDAStart: 09-05-2023 Goals DatePatient GoalDesired Activity/State History of Present illness Narrative 02-15-2025 Note Date & IuizIqqoMwtffaho15-13-3822 History of Present illness Narrative* Alba Ronan - 02/15/2025 1:20 PM EDT Reason for Appointment: Patient ID: Maricruz Daniels is a 55 y.o. female who presents for Pre-op Visit and Well Women Visit Patient presents today for Pre Op/Annual appointment. Patient is scheduled to undergo D&C Hysteroscopy, possible Myosure on 02/26/[address] Lemons at [facility]. MEDICATIONS Current Outpatient Medications Medication Instructions nystatin (Mycostatin) 222111 UNIT/GM powder Topical, 3 times daily ALLERGIES [...] nursing note reviewed. Exam conducted with a risk management manager present. Vitals: There is no height or [...] reviewed, and patient is to proceed to [facility] OR. Follow Up: Patient is to follow up between 1-2 weeks post operative to assess proper healing and recovery fromprocedure. Documented by Katie Mojica LPN on behalf of: Renee Lemons DO documented in this encounterNOMS Healthcare History of Present illness Narrative 01-05-2025 Note Date & DfgzYcrfQhzrxwiu51-38-1630 History of Present illness Narrative* Alexa Polk [...] nursing note reviewed. Exam conducted with a risk management manager present. Vitals: There is no height or [...] of: Renee Lemons DO documented in this [facility] Consultation note 02-13-2022 Note Date & FsqfErnsZyorkfjy47-84-9184 NoteCONSULTATION CONSULTATION DATE: 02/13/2022 CHIEF COMPLAINT: Low back pain 15+ years. HISTORY OF PRESENT ILLNESS: This is a very pleasant, 52-year-old female who was referred to us by Dr. Antonio. The patient's family physician is Paola Sanchez CNP. The patient has chronic low back pain. The patient works at [employer]. The patient rates the pain as a [...] program. CC: Wendy Antonio D.O. Paola Sanchez, [facility] Evaluation note Note Date & TypeNoteFacilityEvaluation noteNo assessment information available [facility] Work Phone: Evaluation note Note Date & TypeNoteFacilityEvaluation note* Diagnosis Menorrhagia with irregular cycle Thickened endometrium Nonspecific (abnormal) findings on radiological and other examination of genitourinary organs Irritation of scar documented in this encounter [facility] Evaluation note Note Date & TypeNoteFacilityEvaluation note* Diagnosis Well woman exam with routine gynecological exam Routine gynecological examination Pre-op examination Menorrhagia with irregular cycle Thickened endometrium Nonspecific (abnormal) findings on radiological and other examination of genitourinary organs Postmenopausal state Asymptomatic postmenopausal status (age-related) (natural) Encounter for screening mammogram for malignant neoplasm of breast documented in this encounter [facility] Discharge instructions Note Date & TypeNoteFacilityHospital Discharge [...] worsening of your eyesight. Please call your grinder set up operator internal during normal business hours. If after business hours call Dr. Vlad Aguilar at his cell [phone] or his office [phone].[facility] Work Phone: Chief Complaint and Reason for Visit Chief Complaint r29.898 Chief Complaint Right Eye Cataract Right Eye Cataract BH Left Eye Cataract Advance Directives Advance Directive Response Recorded Date/ Time Advance Directives No July 13, 022 4:21pm Summary Purpose Family History Relationship Condition Age at Onset Recorded Date/T anu Not Specified Multiple myeloma Unknown Malignant neoplasm of breastUnknownDepressionUnknownAnxietyUnknownsister Malignant neoplasm of uterusUnknown Additional Source Comments Care Teams (unrecognized sec tion and content) Team Status: Inactive Member Role Status Dates Heri Antonio DO Attending Provider Active Paola Sanchez APRN LAMINATING MACHINE TENDER-CPrimary Care ProviderActive Team Status: Active Member Role Status Dates Paola Sanchez APRN LAMINATING MACHINE TENDER-C Primary Care Provider Active Team Status: Inactive Member Role Status Dates Paola Sanchez APRN LAMINATING MACHINE TENDER-C Primary Care Provider Active Start: September 04, 2023 End: September 04, 2023Michael Torres ProviderActiveStart: September 04, 2023 End: September 04, 2023 Team Status: Inactive Member Role Status Dates Paola Sanchez APRN LAMINATING MACHINE TENDER-C Primary Care Provider Active Start: September 05, 2023 End: September 05, 2023Michael Torres ProviderActiveStart: September 05, 2023 End: September 05, 2023 Team Status: Active Member Role Status Dates Paola Sanchez APRN LAMINATING MACHINE TENDER-C Primary Care Provider Active Start: September 11, 2023 Michael Sotelo ProviderActiveStart: September 11, 2023 Team Status: Inactive Member Role Status Dates Paola Sanchez APRN LAMINATING MACHINE TENDER-C Primary Care Provider Active Start: October 03, 2023 End: October 03, 2023Michael Torres ProviderActiveStart: October 03, 2023 End: October 03, 2023 Goals (unrecognized section and content) Goals may be documented in a n alternate section INFORMATION SOURCE (unrecogn ized section and content) DATE CREATED AUTHOR 02/18/2022 [facility] DATE CREATED AUTHOR AUTHOR'S ORGANIZ ATION 12/23/2024 [facility] DATE CREATED AUTHOR AUTHOR'S ORGANIZ ATION 02/09/2025 [facility] DATE CREATED AUTHOR AUTHOR'S ORGANIZ ATION 02/16/2025 [facility] EPIC Reason for Visit (unrecogniz [...] BE BASED ON THE PRIMARY CLINICAL RECORDS. [facility] [employer] provides no warranty or guarantee of the accuracy or completeness of information in this document.
--- OUTSIDE RECORDS SUMMARY | 2025-02-26 07:56 | XMS_ITS | Encounter Summary ---
Author Organization [facility] Address [address] [place] [address] Care Team Providers Care Job Estimator Name Role Phone Unavailable Primary Care Provider Unavailabl e Encounter Details DateTypeDepartmentCare Team (Latest Contact Info)Xjhnbitkfvc02/27/2025Clinisync Result Encounter [facility] External Department Unsolicited Martin Lemons, DO [address] [place] [address] Social History Tobacco UseTypesPacks/DayYears UsedDateSmoking Tobacco: Never Assessed CommentsUnknownSex and Gender InformationValueDate RecordedSex Assigned at Not on fileLegal NkqEjpnmh09/03/2025 12:53 PM EDTGender IdentityNot on file Sexual OrientationNot on filedocumented as of this encounter Plan of Treatment Not on file documented as of this encounter Procedures Procedure NamePriorityDate/TimeAssociated DiagnosisCommentsIGP,APTIMA HPV,AGE RRWXAtydmpu53/27/2025 1:41 PM EDT documented in this encounter Results * IGP,APTIMA HPV,AGE GDLN (02/15/2025 1:41 PM EDT)ComponentValueRef RangeTest MethodAnalysis TimePerformed AtPathologist SignatureAGE GDLN ACOG TESTINGNote. TBHComment: ?? TESTS ? RESULT ??FLAG ??UNITS ?REF RANGE ??LAB ?? Clinician Provided Cytology Information ?? Source.............Cervix;Endocervix ?? No. of containers..01 ThinPrep Vial Age Algo ACOG Emily... ??30-65 ? 01 ?FLAG LEGEND: ?L-Low Normal,H-High Normal,LL-Alert Low,HH-Alert High <-Panic Low,>-Panic High,A-Abnormal,AA-Critical Abnormal Performed at: 01 =G ?[facility] [place] ?? [address] [place] [place], [place] ??[phone] ?? Yelitza Rhodes MD, IGP, APTIMA HPV, RFX 16/18,45Note.TBHComment: ?? TESTS ? RESULT ??FLAG ??UNITS ?REF RANGE ??LAB DIAGNOSIS: ?02 ?? NEGATIVE FOR INTRAEPITHELIAL LESION OR MALIGNANCY. Specimen adequacy: ?02 ?? Satisfactory for evaluation. No endocervical component is identified. Performed by: ? 02 ?? Radha aZmora, Transcriber (ASCP) . ? 02 Note: ? Note ?02 ?? The Pap smear is a screening test designed to aid in the ?? detection of premalignant and malignant conditions of the ?? uterine cervix. ??It is not a diagnostic procedure and ?? should not be used as the sole means of detecting cervical ?? cancer. ??Both false-positive and false-negative reports do ?? occur. Test Methodology: ? Note ?02 ?? This liquid based ThinPrep(R) pap test was interpreted ?? using the Augment(R) VersionEyeius(TM) Cervical Algorithm whole ?? slide imaging system. HPV Genotype Reflex ?? Note ?02 ?? Criteria not met, HPV Genotype not performed. ?FLAG LEGEND: ?L-Low Normal,H-High Normal,LL-Alert Low,HH-Alert High <-Panic Low,>-Panic High,A-Abnormal,AA-Critical Abnormal Performed at: 02 WB ?[facility] ?? [address], [place] ??[phone] ?? Yelitza Rhodes MD, HPV APTIMANegativeNegativeTBHComment: This nucleic acid amplification test detects fourteen high- risk HPV types (16,18,31,33,35,39,45,51,52,56,58,59,66,68) without differentiation. Performed at: ??=G - [facility] ??[id number] [employer] Stewardess: Yelitza Rhodes MD, Phone: ??[phone] Performed at: ??WB - [facility] ??[id number] [employer] Stewardess: Yelitza Rhodes MD, Phone: ??[phone] Specimen (Source)Anatomical Location / LateralityCollection Method / Volume Collection TimeReceived Time02/15/2025 1:41 PM EDT1 8:16 PM EDT Narrative [facility] - 02/19/2025 1:08 PM EDT SPATULA-ALONE CERVIX ENDOCERVIX Authorizing ProviderResult TypeResult StatusCorey Vesta COUCH BLOOD ORDERABLES Final ResultPerforming OrganizationAddressCity/State/ZIP CodePhone Number [facility] documented in this encounter Visit Diagnoses Not on filedocumented in this encounter
--- OUTSIDE RECORDS SUMMARY | 2025-02-26 07:56 | XMS_ITS | Encounter Summary ---
Author Organization [facility] Address [address] [place] [address] Care Team Providers Care Refrigeration Installer Name Role Phone Unavailable Primary Care Provider Unavailabl e Reason for Visit * ReasonCommentsMed Refill Encounter Details DateTypeDepartmentCare Team (Latest Contact Info)Xemgexgmjae83/24/2025Refill [facility] [address] [place] [address] Martin Lemons DO [address] [place], [place] [id number] Irritation of scar Social History Tobacco UseTypesPacks/DayYears UsedDateSmoking Tobacco: Never Assessed CommentsUnknownSex and Gender InformationValueDate RecordedSex Assigned at Not on fileLegal RghGrqvzp02/03/2025 12:53 PM EDTGender IdentityNot on file Sexual OrientationNot on filedocumented as of this encounter Plan of Treatment Not on file documented as of this encounter Visit Diagnoses Diagnosis Irritation of scar documented in this encounter
--- OUTSIDE RECORDS SUMMARY | 2025-02-26 07:56 | XMS_ITS | Encounter Summary ---
Author Organization [facility] Address [address] [place] [address] Care Team Providers Care Chinchilla Farmer Name Role Phone Unavailable Primary Care Provider Unavailabl e Encounter Details DateTypeDepartmentCare Team (Latest Contact Info)Jeirdlisxfj94/29/2025linisync Result Encounter [facility] External Department Unsolicited Reene Lemons, DO [address] [address] Social History Tobacco UseTypesPacks/DayYears UsedDateSmoking Tobacco: Never Assessed CommentsUnknownSex and Gender InformationValueDate RecordedSex Assigned at Not on fileLegal WpzEhossa91/03/2025 12:53 PM EDTGender IdentityNot on file Sexual OrientationNot on filedocumented as of this encounter Plan of Treatment Not on file documented as of this encounter Procedures Procedure NamePriorityDate/TimeAssociated DiagnosisCommentsECG 12-LEAD02/17/2025 11:10 AM EDT documented in this encounter Results * ECG 12-LEAD (02/17/2025 11:10 AM EDT)Anatomical RegionLateralityModalityOther Specimen (Source)Anatomical Location / LateralityCollection Method / Volume Collection TimeReceived Time02/17/2025 11:10 AM EDT Narrative 02/17/2025 6:40 PM EDT [facility] ?[address] ? [place] [address] ? Electrocardiograph Report ? Signed ? Patient: GIULIANO ALLEN ?MR#: [id number] ?? : 1970 ?Acct:[id number] ?? Age/Sex: 55 / F ?ADM Date: 02/17/25 ?? Loc: PST ? Attending Dr: Renee Lemons D.O. ? Ordering Physician: Renee Lemons D.O. ?? Date of Service: 02/17/25 ?? Procedure(s): ECG 12 lead ?? Accession Number(s): [id number] ? cc: ?[facility] ? Test Date: ?2025-02-17 ?? Pat Name: ? GIULIANO WHITE ? Department: ? Room: ? - ?? Gender: ? Female ? Aircraft Servicer: ? : ?1970 ? Requested By: RENEE LEMONS ?? Order Number: [id number] ?Reading MD: ?? DIONI MERRICK ? Measurements ?? Intervals ?[place] ? Rate: ? 71 ? P: ?74 ?? [place]: ? 177 ?QRS: ?37 ?? QRSD: ? 81 ? T: ?71 ?? QT: ? 381 ? QTc: ?415 ? Interpretive Statements ?? SINUS RHYTHM ?? NONSPECIFIC T-WAVE ABNORMALITY ?? Compared to ECG 03/14/2018 10:09:42 ?? T-wave abnormality now present ?? ST (T wave) deviation no longer present ?? Electronically Signed On 02-17-2025 18:40:12 EDT by DIONI SIN ? Dictated By: ?Dioni Sin M.D. ? Signed By: ?10/29/25 1840 ? DD/ 1110 ? TD/TT: ? Claims Investigator: Procedure Note Radiology, Radiologist, - 02/17/2025 [place] [address] Electrocardiograph Report Signed Patient: GIULIANO ALLEN KMR#: [id number] : 1970Acct:[id number] Age/Sex: 55 / FADM Date: 02/17/25 Loc: [facility] Attending Dr: Renee Lemons D.O. Ordering Physician: Renee Lemons D.O. Date of Service: 02/17/25 Procedure(s): ECG 12 lead Accession Number(s): [id number] cc: [facility] Test Date: 2025-02-17 Pat Name: GIULIANO ALLEN Department: Room: - Gender: Female Aircraft Servicer: : 1970 Requested By: RENEE LEMONS Order Number: [id number] Reading MD: DIONI SIN Measurements Intervals [place] Rate: 71 P: 74 [place]: 177 QRS: 37 QRSD: 81 T: 71 QT: 381 QTc: 415 Interpretive Statements SINUS RHYTHM NONSPECIFIC T-WAVE ABNORMALITY Compared to ECG 03/14/2018 10:09:42 T-wave abnormality now present ST (T wave) deviation no longer present Electronically Signed On 02-17-2025 18:40:12 EDT by DIONI SIN Dictated By: Dioni Sin M.D. Signed By:02/17/25 1840 DD/ 1110 TD/TT: Claims Investigator: Authorizing ProviderResult TypeResult StatusCorey Vesta DOCLINISYNC IMAGINGFinal Result documented in this encounter Visit Diagnoses Not on filedocumented in this encounter
--- OUTSIDE RECORDS SUMMARY | 2025-02-26 07:56 | XMS_ITS | Encounter Summary ---
Author Organization [facility] Address [address] [place] [address] Care Team Providers Care Linux Server Administrator Name Role Phone Unavailable Primary Care Provider Unavailabl e Encounter Details DateTypeDepartmentCare Team (Latest Contact Info)Akavlhhsfer69/27/2025amboo flowsheet [facility] [place] [facility] [address] [place] [address] Martin Lemons DO [address] [place], [place] [id number] Social History Tobacco UseTypesPacks/DayYears UsedDateSmoking Tobacco: Never Assessed CommentsUnknownSex and Gender InformationValueDate RecordedSex Assigned at Not on fileLegal MkxJqpafh03/03/2025 12:53 PM EDTGender IdentityNot on file Sexual OrientationNot on filedocumented as of this encounter Plan of Treatment Not on file documented as of this encounter Visit Diagnoses Not on filedocumented in this encounter
--- OUTSIDE RECORDS SUMMARY | 2025-02-26 07:56 | XMS_ITS | Clinical Summary ---
Author Organization [facility] Address [address] [place] [address] Care Team Providers Care Human Relations Professor Name Role Phone Unavailable Primary Care Provider Unavailabl e Allergies Active AllergyReactionsCriticalityNoted DateCommentsGrass Pollen(K-O-R-T-Swt Reagan)01/05/20253071Fzwvpgszqqy47/16/2025 Medications MedicationSigDispense QuantityRefillsLast FilledStart DateEnd DateStatus nystatin (Mycostatin) 701020 UNIT/GM powder Indications:Irritation of scarAPPLY TOPICALLY IN THE MORNING AND IN THE EVENING AND BEFORE BEDTIME. 15 g ctive nystatin (Mycostatin) 746628 UNIT/GM powder Indications:Irritation of scarApply topically in the morning and in the evening and before bedtime. 15 g Discontinued nystatin (Mycostatin) 108610 UNIT/GM powder Indications:Irritation of scarAPPLY TOPICALLY IN THE MORNING AND IN THE EVENING AND BEFORE BEDTIME. 15 g Discontinued Encounters DateTypeDepartmentCare LudjPdjnpadiyme51/29/2025linisync Result Encounter [facility] External Department Unsolicited Renee Lemons DO 02/15/2025 1:20 PM EDTProcedure Visit [facility] [place] [facility] [address] [place] [phone] Renee Lemons DO Well woman exam with routine gynecological exam; Pre-op examination; Menorrhagia with irregular cycle; Thickened endometrium; Postmenopausal state; Encounter for screening mammogram for malignant neoplasm of hggxyd2902/15/2025 Clinisync Result Encounter [facility] External Department Unsolicited Renee Lemons DO 02/15/2025amboo flowsheet [facility] [place] [facility] [address] [place] [address] Renee Lemons, 02/12/2025Refill [facility] [place] [facility] [address] [place] [address] Renee Lemons, Irritation of scar02/02/2025Refill [facility] [place] [facility] [address] [place] [address] Renee Lemons, Irritation of scar01/05/2025 1:30 PM EDTOffice Visit [facility] [place] [facility] [address] [place] [address] Renee Lemons, Menorrhagia with irregular cycle; Thickened endometrium; Irritation of scar01/05/2025amboo flowsheet [facility] [place] [facility] [address] [place] [address] Renee Lemons, from Last 3 Months Social History Tobacco UseTypesPacks/DayYears UsedDateSmoking Tobacco: Never Assessed CommentsUnknownSex and Gender InformationValueDate RecordedSex Assigned at Not on fileLegal LjnNmwtvt80/03/2025 12:53 PM EDTGender IdentityNot on file Sexual OrientationNot on file Last Filed Vital Signs Vital SignReadingTime TakenCommentsBlood Tlitlsnm789/7202/15/2025 1:51 PM EDT Pulse--Temperature--Respiratory Rate--Oxygen Saturation--Inhaled Oxygen Concentration--Ufnuxa16 kg (209 lb 8 oz)02/15/2025 1:51 PM EDTHeight--Body Mass Index-- Plan of Treatment Not on file Procedures Procedure NamePriorityDate/TimeAssociated DiagnosisCommentsECG 12-LEAD02/17/2025 11:10 AM EDT IGP,APTIMA HPV,AGE HCFJPzpdrxf88/27/2025 1:41 PM EDT from Last 3 Months Results * ECG 12-LEAD (02/17/2025 11:10 AM EDT)Anatomical RegionLateralityModalityOther Specimen (Source)Anatomical Location / LateralityCollection Method / Volume Collection TimeReceived Time02/17/2025 11:10 AM EDT Narrative 02/17/2025 6:40 PM EDT [facility] ?[address] ? [place], [facility] ? Electrocardiograph Report ? Signed ? Patient: WHITE,GIULIANO K ?MR#: [id number] ?? : 1970 ?Acct:[id number] ?? Age/Sex: 55 / F ?ADM Date: 02/17/25 ?? Loc: PST ? Attending Dr: Renee Lemons D.O. ? Ordering Physician: Renee Lemons D.O. ?? Date of Service: 02/17/25 ?? Procedure(s): ECG 12 lead ?? Accession Number(s): [id number] ? cc: ?[facility] ? Test Date: ?2025-02-17 ?? Pat Name: ? GIULIANO WHITE ? Department: ? Room: ? - ?? Gender: ? Female ? National Recruiter: ? : ?1970 ? Requested By: RENEE LEMONS ?? Order Number: [id number] ?Reading MD: ?? DIONI SIN ? Measurements ?? Intervals ?[place] ? Rate: ? 71 ? P: ?74 ?? [place]: ? 177 ?QRS: ?37 ?? QRSD: ? [...] By: ?Dioni Sin M.D. ? Signed By: ?02/17/25 1840 ? DD/ 1110 ? TD/TT: ? Civil Transportation Engineer: Procedure Note Radiology, Radiologist, - 02/17/2025 [place] [address] Electrocardiograph Report Signed Patient: GIULIANO DANIELS R#: [id number] : 1970Acct:[id number] Age/Sex: 55 / FADM Date: 02/17/25 Loc: [facility] Attending Dr: Renee Lemons D.O. Ordering Physician: Renee Lemons D.O. Date of Service: 02/17/25 Procedure(s): ECG 12 lead Accession Number(s): [id number] cc: [facility] Test Date: 2025-02-17 Pat Name: GIULIANO DANIELS Department: Room: - Gender: Female National Recruiter: : 1970 Requested By: RENEE LEMONS Order Number: [id number] Reading MD: DIONI SIN Measurements Intervals [place] Rate: 71 P: 74 [place]: 177 QRS: 37 QRSD: 81 T: 71 QT: 381 QTc: 415 Interpretive Statements SINUS RHYTHM NONSPECIFIC T-WAVE ABNORMALITY Compared to ECG 03/14/2018 10:09:42 T-wave abnormality now present ST (T wave) deviation no longer present Electronically Signed On 02-17-2025 18:40:12 EDT by DIONI SIN Dictated By: Dioni Sin M.D. Signed By:02/17/25 1840 DD/ 1110 TD/TT: Civil Transportation Engineer: Authorizing ProviderResult TypeResult StatusCorey Vesta DOCLINISYNC IMAGINGFinal Result * IGP,APTIMA HPV,AGE GDLN (02/15/2025 1:41 PM [...] at: 01 =G ?[facility] ?? [address] [place], [place] ??[phone] ?? Yelitza Rhodes MD, IGP, APTIMA HPV, RFX 16/18,45Note.TBHComment: ?? TESTS ? RESULT ??FLAG ??UNITS ?REF RANGE ??LAB DIAGNOSIS: ?02 ?? NEGATIVE FOR INTRAEPITHELIAL LESION OR MALIGNANCY. Specimen adequacy: ?02 ?? Satisfactory for evaluation. No endocervical component is identified. Performed by: ? 02 ?? Radha Zamora, Residence Counselor (ASCP) . ? 02 Note: ? Note [...] pap test was interpreted ?? using the [employer](R) Bridestoryius(TM) Cervical Algorithm whole ?? slide imaging system. HPV Genotype Reflex ?? Note ?02 ?? Criteria not met, HPV Genotype not performed. ?FLAG LEGEND: ?L-Low Normal,H-High Normal,LL-Alert Low,HH-Alert High <-Panic Low,>-Panic High,A-Abnormal,AA-Critical Abnormal Performed at: 02 WB ?[facility] ?? [address] [place] ??[phone] ?? Yelitza Rhodes MD, HPV APTIMANegativeNegativeTBHComment: This nucleic acid amplification test detects fourteen high- risk HPV types (16,18,31,33,35,39,45,51,52,56,58,59,66,68) without differentiation. Performed at: ??=G - [facility] [address] ??[id number] Nurse Practitioner Per Diem: Yelitza Rhodes MD, Phone: ??[phone] Performed at: ??WB - [facility] [address] ??[id number] Nurse Practitioner Per Diem: Yelitza Rhodes MD, Phone: ??[phone] Specimen (Source)Anatomical Location / LateralityCollection Method / Volume Collection TimeReceived Time02/15/2025 1:41 PM EDT1 8:16 PM EDT Narrative [facility] - 02/19/2025 1:08 PM EDT SPATULA-ALONE CERVIX ENDOCERVIX Authorizing ProviderResult TypeResult StatusCorey Vesta DOLAB BLOOD ORDERABLES Final ResultPerforming OrganizationAddressCity/State/ZIP CodePhone Number [facility] from Last [address] [place] [address]
[2025-02-26 08:07] LABS: Hematocrit 35.4 % (36.0-48.0); Hemoglobin 10.8 g/dL (12.0-16.0); Immature Granulocytes Abs Auto 0.03 10^3/uL (0.00-0.03); Immature Granulocytes Pct Auto 0.4 % (0.0-0.5); Lymphocytes Absolute Auto 2.9 10^3/uL (1.2-3.8); Mean Corpuscular HGB Conc 30.5 g/dL (29.9-35.2); Mean Corpuscular Hemoglobin 24.9 pg (26.7-34.0); Mean Corpuscular Volume 81.6 fL (81.0-99.0); Platelet Count 329 10^3/uL (150-450); Red Blood Count 4.34 10^6/uL (4.20-5.40); White Blood Count 8.5 10^3/uL (4.0-11.0)
[2025-02-26 08:09] VITALS: BP 124/72; PULSE 71; TEMP 36.1; O2SAT 97; BMI 35.7
[2025-02-26 11:00] VITALS: BP 107/70; PULSE 76; TEMP 36.1; O2SAT 93
[2025-02-26 11:15] VITALS: BP 123/89; PULSE 76; O2SAT 95
--- NOTE | 2025-02-26 11:33 | P.ON_ITS ---
Brief Operative Note Date of procedure: 02/26/25 Pre-op diagnosis general: pmb, uterine mass Post-op diagnosis: other (uterine polyp and fibroid) Procedure: NAME OF PROCEDURE: [ D&c hysteroscopy with myosure] PROCEDURE: The patient was taken back to the Operating Room where she was prepped and draped in normal sterile fashion after being placed under general anesthesia without difficulty. She was also placed in the dorsal lithotomy position. A weighted speculum was placed in the patient?s vagina. The anterior lip of the cervix was identified and grasped with a single tooth tenaculum. The patient?s uterus was then sounded roughly to [? 8] cm. The patient was then gently dilated using Hegar dilators. The hysteroscope was passed through the patient?s cervix into the uterus. Both ostia were identified. fluffy appearing endometrium. No gross evidence of malignancy, no gross evidence of polyps or fibroids. The myosure apparatus was placed through the scope, The myosure was engaged and endometrial curretting were removed along with endometrial fibroid and polyp, The hysteroscope was then removed from the uterus. The endometrial curettings were sent out to pathology. The single tooth ten aculum was then removed from the patient's anterior lip of the cervix where excellent hemostasis was noted. All instruments were removed from the patient?s vagina. The patient tolerated the procedure well. Sponge, lap and needle counts were correct times two. The patient was taken to the Recovery Room in stable condition.Room in stable condition. Anesthesia: MAC Surgeon: Martin Lemons Estimated blood loss (mL): 10 Pathology: other (endometrial currettings polyp and fibroid) Condition: stable Disposition: PACU Urinary Catheter Management Urinary Catheter Management Urethral: Cath placed during this visit: no
[2025-02-26 11:45] VITALS: BP 124/82; PULSE 76; O2SAT 96
== END 2025-02-26 11:45 | disposition home or self-care (01) ==
LOC: SURGOUT 07:52
PROVIDERS: Visit Provider Obstetrics & Gynecology
PROC: (CPT 952; principal; 2025-02-26 09:05)
DX: N95.0 Postmenopausal bleeding (principal); R93.89 Abnormal findings on diagnostic imaging of other specified body structures; N84.0 Polyp of corpus uteri; D25.9 Leiomyoma of uterus, unspecified; J44.9 Chronic obstructive pulmonary disease, unspecified; F17.210 Nicotine dependence, cigarettes, uncomplicated; R06.09 Other forms of dyspnea; Z87.01 Personal history of pneumonia (recurrent); G89.29 Other chronic pain; F32.A Depression, unspecified; F41.9 Anxiety disorder, unspecified; F43.10 Post-traumatic stress disorder, unspecified
CPT/HCPCS: 58558; 36415; 84702; 85025; 88305; J1100; J2250; J2704; J3010